=== PATIENT | female | born 1945 | race African-American/Black ===

== ENCOUNTER 2019-08-02 05:11 | Observation (INO) | payer MEDICARE ==
[~2019-08-02] VITALS: Ht 170.2 cm; Wt 69.1 kg
--- NOTE | ~2019-08-02 | HEMODYNAMI ---
PATIENT:CAMELIA RAUSCH MEDICAL RECORD: [id number] : 41 LOCATION:[address]# [id number] ADMISSION DATE: 08/02/19 Generatedon:08/02/201913:12 Patient name: CAMELIA RAUSCH Patient #: [id number] SSN: [id number] : 1945 Date of study: 08/02/2019 Page: Of Hemodynamic Procedure Report Patient Data Patient Demographics Procedure consent was obtained First Name: CAMELIA Gender: Female Last Name: MIRACLE : 1945 Patient #: [id number] Age: 74 year(s) Race: Black SSN: [id number] Additional ID: [id number] Contact details Address: [address] [place] [address] State: [facility] Zip code: [address] Past Medical History Allergies Allergen Reaction Date Comments Reported Other allergy 08/02/2019 REBEKA KEY Admission Admission Data Admission Date: 08/02/2019 Admission Time: 5:42 Arrival Date: 08/02/2019 Arrival Time: 0:00 Admit Source: Other Insurance Payor: Medicare, Room #: D.2122 Medicaid HIC #: [id number] Height (in.): 68 BSA: 1.82 (m2) Height (cm.): 172.72 BMI: 23.11 (kg/m2) Weight (lbs.): 152 Weight (kg.): 68.95 Lab Results Lab Result Date: 08/02/2019 Lab Result Time: 0:00 Biochemistry Name Units Result Min Max BUN mg/dl 8 --(*---)-- 7 18 Creatinine mg/dl 1.2 --(---*)-- 0.6 1.3 eGFR ml/min 56 *-(----)-- 90 120 AM Troponin l ng/ml 0.6777 --(----)-* 0 0.06 CBC Name Units Result Min Max Hemoglobin g/dl 12.2 *-(----)-- 13.5 17.5 Procedure Procedure Types Cath Procedure Diagnostic Procedure LHC LHC w/Coronaries w/Grafts Procedure Description Procedure Date Procedure Date: 08/02/2019 Procedure Start Time: 12:57 Procedure End Time: 13:09 Procedure Staff Name Function Umang Oliver MD Performing Physician Abbi Gamble RT Monitor Belle Garza RT Scrub Antonella Caceres RT Scrub Niurka Mckeon RN Nurse Procedure Data Cath Procedure Fluoroscopy Diagnostic fluoroscopy Total fluoroscopy Time: 2.6 time: 2.6 min min Diagnostic fluoroscopy Total fluoroscopy dose: 495 dose: 495 mGy mGy Contrast Material Contrast Material Type Amount (ml) Isovue 370 103 Entry Location Entry Primary Successful Side Size Upsize Upsize Entry Closure Succes sful Closure Location (Fr) 1 (Fr) 2 (Fr) Remarks Device Remarks Femoral Right 5 Fr Exoseal artery Diagnostic catheters Device Type Used For End Catheter Placement MULTIPACK Pigtail 5 Fr LV Angiography catheter MULTIPACK JL 4.0 5Fr Left Coronary catheter Angiography MULTIPACK 3DRC 5Fr Right Coronary catheter Angiography Procedure Complications No complications Procedure Medications Medication Administration Route Dosage 0.9% NaCl I.V. 100 ml/hr Oxygen etCO2 Nasal cannula 2 l/min Lidocaine 2% added to field 20 Heparin Flush Bag added to field 2 bags (1000units/500ml NS) Versed I.V. 2 mg Fentanyl I.V. 50 mcg Hemodynamics Rest BSA: 1.82 (m2) HGB: 12.2 (g/dl) O2 Consumption: Estimated: 162.86 (ml/min) O2 Co nsumption indexed: Estimated:89.48 (ml/min/m) Heart Rate: 67 (bpm) Snapshots Pre Cath Intra NCS Post Cath Vital Signs Time Heart Resp SPO2 etCO2 NIBP (mmHg) Rhythm Pain Sedation Rate (ipm) (%) (mmHg) Status Level (bpm) 12:55:48 65 17 98 23.9 191/89(152) NSR 0 (11) 10(A) , No pain 13:00:10 71 16 100 30.6 178/89(130) NSR 0 (11) 10(A) , No pain 13:04:35 72 13 97 29.1 179/83(133) NSR 0 (11) 10(A) , No pain 13:08:59 71 12 97 28.3 166/84(129) NSR 0 (11) 10(A) , No pain Medications Time Medication Route Dose Verified Delivered Reason Notes Eff ectiveness by by 12:54:02 0.9% NaCl I.V. 100 Umang Niurka used for ml/hr Benito Mckeon dog track kennel manager 12:54:08 Oxygen etCO2 2 Umang Niurka used for Nasal l/min Benito Mckeon procedure cannula RN 12:54:14 Lidocaine 2% added 20ml Umang Umang for local to vial Benito Oliver MD anesthetic field 12:54:18 Heparin Flush added 2 Umang Umang used for Bag to bags Benito Oliver MD procedure (1000units/500ml field NS) 12:56:50 Versed I.V. 2 mg Umang Niurka for Benito Mckeon sedation RN 12:56:59 Fentanyl I.V. 50 Umang Niurka for mcg Benito Mckeon sedation financial services consultant Log Time Note 12:19:27 Informed consent obtained and on chart 12:21:47 Patient Height : 68 inches 12:21:53 Patient Weight : 152 lbs 12:22:42 Arrival Date: 08/02/2019 12:00:00 AM 12:23:18 Insurance Payor : Medicare, Medicaid 12:23:20 Admit Source: Other 12:24:23 Lab Result : Creatinine 1.2 mg/dl 12:24:23 Lab Result : BUN 8 mg/dl 12:24:23 Lab Result : eGFR AM 56 ml/min 12:24:23 Lab Result : Hemoglobin 12.2 g/dl 12:24:23 Lab Result : Troponin l 0.6777 ng/ml 12:32:26 Procedure Status Urgent Heart Cath (IP). 12:32:28 Time tracking: Regular hours (M-F 7:00 - 5:00) 12:32:35 Plan of Care:Hemodynamics will remain stable., Cardiac rhythm will remain stable., Comfort level will be maintained., Respiratory function will remain adequate., Patient/ family verbilizes understanding of procedure., Procedure tolerated without complication., Recovers from procedure without complications.. 12:32:40 H&P Date Dictated: 08/02/2019 New H&P dictated by physician.. 12:33:00 Patient allergic to Other allergyCEFTIN, CIPRO 12:38:50 Belle Greg RT(R) (CV) sent for patient. Start room use. 12:38:56 Risk of Mortality: .3 12:38:59 Risk of blood transfusion: 1.2 12:39:02 Risk of ALEXIS: 2.3 12:47:03 Patient received from Med II to CCL 2 Alert and oriented. Tansferred to table in Supine position. 12:47:04 Warm blankets applied, and shila hugger turned on for patient comfort. 12:47:05 Correct patient and procedure confirmed by team. 12:47:05 ECG and BP/O2 sat monitors applied to patient. 12:47:07 Vital chart was started 12:54:02 0.9% NaCl 100 ml/hr I.V. was administered by Niurka Mckeon RN; used for procedure; Verbal order read back and verified. 12:54:07 Baseline sample Acquired. 12:54:08 Oxygen 2 l/min etCO2 Nasal cannula was administered by Niurka Mckeon RN; used for procedure; Verbal order read back and verified. 12:54:11 Rhythm: sinus rhythm 12:54:12 Full Disclosure recording started 12:54:13 Pre-procedure instructions explained to patient. 12:54:13 Pre-op teaching completed and patient verbalized understanding. 12:54:14 Lidocaine 2% 20ml vial added to field was administered by Umang Oliver MD; for local anesthetic; Verbal order read back and verified. 12:54:15 Family unavailable. 12:54:18 Heparin Flush Bag (1000units/500ml NS) 2 bags added to field was administered by Umang Oliver MD; used for procedure; Verbal order read back and verified. 12:54:18 Patient NPO since Breakfast. 12:54:20 Is the patient allergic to Iodine/contrast media? No. 12:54:38 Pre procedure: right dorsailis pedis pulse 1+ Palpable, but thready & weak; easily obliterated 12:54:42 Patient pain scale 0/10 ?. 12:54:53 IV patent on arrival in left wrist with 0.9% NaCl at KVO. 12:55:04 Lab results completed and on chart. 12:55:08 Right groin area was prepped with chlora-prep and draped in sterile fashion 12:55:09 Alarms reviewed by R. N. 12:55:10 Sharps counted by scrub and verified by R.N. 12:55:11 Physician arrived 12:55:35 Is patient on blood thinner?Yes 12:55:38 ACC The patient was administered the following blood thiners within the last 24 hours: ACCPlavix 12:55:41 Patient diabetic? No. 12:55:42 If diabetic: On Metformin? No 12:55:43 ----Pre-sedation anethsthesia assessment.---- 12:55:46 Previous problem with sedation/anesthesia? No ? 12:55:48 Snore? No 12:55:49 Sleep apnea? No 12:55:50 Deviated septum? No 12:55:52 Opens mouth fully? Yes 12:55:53 Sticks out tongue? Yes 12:55:55 Airway obstruction? No ? 12:55:59 Dentures? Yes IN TIGHT 12:56:04 --------ALL STOP TIME OUT------ 12:56:05 Final Timeout: patient, procedure, and site verified with staff and physician. All members of the team are in agreement. 12:56:06 Left groin site verified by team. 12:56:10 Fire Safety Assessment: A--An alcohol-based skin anteseptic being used preoperatively., C--Open oxygen or nitrous oxide is being used., D--An ESU, laser, or fiber-optic light is being used. 12:56:13 Physical assessment completed. ASA score P 2 - A patient with mild systemic disease as per Umang Oliver MD. 12:56:50 Versed 2 mg I.V. was administered by Niurka Mckeon RN; for sedation; Verbal order read back and verified. 12:56:59 Fentanyl 50 mcg I.V. was administered by Niurka Mckeon RN; for sedation; Verbal order read back and verified. 12:57:16 3a) 45-59 Moderately reduced kidney function. 12:57:21 Maximum allowable contrast dose (3.7 X eGFR X 0.75)155.4 ml. 12:57:27 Sedation plan: IV Moderate Sedation Medication:Versed, Fentanyl 12:57:32 Use device set Femoral Dx 12:57:33 ACIST Syringe (91438) opened to sterile field. 12:57:34 Bag Decanter (2002S) opened to sterile field. 12:57:34 Medline Cath Pack ([id number]) opened to sterile field. 12:57:36 ACIST Hand Control (54337) opened to sterile field. 12:57:36 ACIST Manifold (59253) opened to sterile field. 12:57:36 DIAGNOSTIC Multipack 5Fr catheter set (TZ2174) opened to sterile field. 12:57:37 Tegaderm 4 x 4 (1626W) opened to sterile field. 12:57:47 SHEATH 5FR Sunnyside (AKD201) opened to sterile field. 12:57:48 EMERALD Guide Wire (657-053) opened to sterile field. 12:57:53 Procedure started. 12:57:57 Local anesthetic to right femoral artery with Lidocaine 2% by Umang Oliver MD.INITIAL ACCESS ONLY 12:58:05 A 5 Fr sheath was inserted into the Right Femoral artery 12:59:32 A MULTIPACK Pigtail 5 Fr catheter was advanced over the wire and used for LV Angiography. 12:59:38 LV angiography performed. 13:00:10 EF : 40 % 13:00:12 LV gram done using GUNTER 13:00:15 Catheter exchanged over wire. 13:00:59 A MULTIPACK JL 4.0 5Fr catheter was advanced over the wire and used for Left Coronary Angiography. 13:01:04 LCA angiography performed. 13:01:15 Catheter removed. 13:01:22 A MULTIPACK 3DRC 5Fr catheter was advanced over the wire and used for Right Coronary Angiography. 13:01:50 DONOVAN to LAD angiography performed. 13:02:50 RCA angiography performed. 13:03:21 Catheter removed. 13:03:26 GUIDE 5FR AR2.0 catheter (NP4PI10) opened to sterile field. 13:04:33 SVG to LMCA angiography performed. 13:04:37 SVG to OM angiography performed. 13:05:06 SKIP GRAFT TO OM1 AND OM2 13:05:13 SVG to RCA angiography performed. 13:05:20 Catheter removed. 13:05:50 Procedure type changed to Cath procedure, Diagnostic procedure, LHC, LHC w/Coronaries w/Grafts 13:06:08 EXOSEAL 5Fr (EX500) opened to sterile field. 13:06:39 Sheath removed intact; hemostasis achieved with Exoseal to the Right Femoral artery. 13:06:41 Procedure ended.(Physican Out) 13:07:55 Fluoroscopy time 02.60 minutes. 13:08:02 Fluoroscopy dose: 495 mGy 13:08:02 Flurop Dose total: 495 13:08:10 Dose Area Product 86959 mGy/cm. 13:08:17 Contrast amount:Isovue 370 103ml. 13:08:20 Sharps counted by scrub and verified by R.N. 13:08:27 Insertion/operative site no bleeding no hematoma. 13:08:30 Post-op/insertion site Right Femoral artery dressed using a 4 x 4 and Tegaderm. 13:08:33 Post right femoral artery:stable 13:08:35 Post Procedure Pulses reassessed and unchanged 13:08:37 Post procedure: right dorsailis pedis pulse 2+ Normal; easily identifiable; not easily obliterated. 13:08:41 Post-procedure physical assessment completed. ASA score P 2 - A patient with mild systemic disease as per Umang Oliver MD. 13:08:44 Post procedure rhythm: unchanged. 13:08:46 Post procedure instruction explained to patient.Patient verbalizes understanding. 13:08:49 Procedure and supply charges have been captured, reviewed, submitted and are correct. 13:09:09 Procedure Complication : No complications 13:09:13 Vital chart was stopped 13:09:31 Operative report dictated upon procedure completion. 13:09:34 See physician's report for complete and final results. 13:09:45 Report given to PCU. 13:09:49 Patient transfered to PCU with Bed. 13:09:51 Procedure ended. 13:09:51 Full Disclosure recording stopped Device Usage Item Name Manufacture Quantity Catalog Hospital Part Current Minimal L ot# / Number Charge Number Stock Stock Serial# Code ACIST Acist 1 57672 737744 812774 332554 20 Syringe Medical (97274) Systems Inc Bag Microtek 1 579917 65785 688875 5 Decanter Medical Inc. () Medline Medline 1 [id number] 620954 37429 710255 5 Cath Pack ([id number]) ACIST Hand Acist 1 75670 294847 577621 958800 5 Control Medical (21305) Systems Inc ACIST Acist 1 76069 535010 692630 085044 5 Manifold Medical (03600) Systems Inc DIAGNOSTIC Cardinal 1 MP0437 852648 60022 191432 30 Multipack Health 5Fr catheter set (QP2734) Tegaderm 4 3M 1 1626W 960975 942829 893566 5 x 4 (1626W) SHEATH 5FR Terumo 1 GOD084 943788 526415 164769 5 Sunnyside (IUZ465) EMERALD Cardinal 1 502-455 251785 214859 564579 5 Guide Wire Health (502455) MULTIPACK Cardinal 1 559685 5 Pigtail 5 Health Fr catheter MULTIPACK Cardinal 1 339735 5 JL 4.0 5Fr Health catheter MULTIPACK Cardinal 1 976920 5 3DRC 5Fr Health catheter GUIDE 5FR Medtronic 1 [id number] 861385 138714 533083 1 AR2.0 catheter (TC1GF36) EXOSEAL 5Fr Cardinal 1 EX500 456595 087794 791298 10 (EX500) Health Signature Audit [place] Stage Time Signature Unsigned Intra-Procedure 08/02/2019 Abbi Gamble 1:10:35 PM RT(R); Niurka Mckeon RN; Umang Oliver MD Signatures Performing Physician : Signature : Umang Oliver MD Date : Time : Monitor : Abbi Gamble RT Signature : Date : Time : Nurse : Niurka Mckeon RN Signature : Date : Time : [facility] [address], [place] [address]
[2019-08-02 05:46] VITALS: BP 151/76
[2019-08-02] MEDS ORDERED: TYLENOL W/CODEI1 TAB PO (06:02)
[2019-08-02] MEDS ORDERED: ALBUTEROL SYRUP (06:03)
[2019-08-02] MEDS ORDERED: BAYER CHEWABLE81 MG PO (06:04)
[2019-08-02] MEDS ORDERED: NORVASC2.5 MG PO (06:04)
[2019-08-02] MEDS ORDERED: COREG25 MG PO (06:04)
[2019-08-02] MEDS ORDERED: COZAAR100 MG PO (06:05)
[2019-08-02] MEDS ORDERED: FAMVIR500 MG PO (06:05)
[2019-08-02] MEDS ORDERED: ZYRTEC10 MG PO (06:05)
[2019-08-02] MEDS ORDERED: LASIX40 MG PO (06:05)
[2019-08-02] MEDS ORDERED: KLOR-CON M2020 MEQ PO (06:06)
[2019-08-02] MEDS ORDERED: RELAFEN500 MG PO (06:06)
[2019-08-02] MEDS ORDERED: MECLIZINE HCL25 MG PO (06:06)
[2019-08-02] MEDS ORDERED: CRESTOR10 MG PO (06:07)
[2019-08-02] MEDS ORDERED: PROTONIX40 MG PO (06:07)
[2019-08-02] MEDS ORDERED: TRIAMTERENE-HC1 EAC6 PO (06:07)
[2019-08-02 06:22] VITALS: BP 156/71
--- NOTE | 2019-08-02 06:42 | NUR ---
PT ARRIVED VIA W/C FROM ER. NO DISTRESS NOTED.
[2019-08-02 06:48] LABS: CKMB 1.2 U/L (0.0-3.6); CREATINE KINASE 30 UL (21-215); POTASSIUM - SERUM 3.8 mmol/L (3.5-5.1); PRO BNP 309 pg/mL (0-450)
[2019-08-02 06:58] LABS: TROPONIN-I 0.677 ng/mL (0.000-0.060)
[2019-08-02 07:22] VITALS: BMI 23.8
[2019-08-02 09:07] VITALS: Ht 170.2 cm; Wt 69.1 kg
--- NOTE | 2019-08-02 09:15 | NUR ---
AM MEDS GIVEN AT THIS TIME. PT CAN HAVE BREAKFAST AND THEN NPO FOR HEART CATH TODAY. PT DENIES ANY NEEDS AT THIS TIME. CALL LIGHT IN REACH, NAD NOTED, WILL CONTINUE TO MONITOR.
[2019-08-02 09:37] LABS: BASOPHILS 0.6 % (0-2); EOSINOPHILS 4.3 % (0-7); HEMATOCRIT 38.3 % (36.0-48.0); HEMOGLOBIN 12.2 g/dL (12-16); IMMATURE GRANULOCYTES 0.2 % (0-5); MCH 32.1 pg (26.0-34.0); MCHC 31.9 g/dL (31.0-37.0); MCV 100.8 fL (80.0-100.0); MEAN PLATELET VOLUME 9.7 fL (7.4-10.4); MONOCYTES 7.9 % (2-11); PLATELET COUNT 302 10x3/uL (130-400); RDW 14.9 % (11.5-14.5); WBC 6.3 10x3/uL (4.8-10.8)
[2019-08-02 09:44] LABS: ANION GAP 8.2 mmol/L (8-16); CALCIUM 9.6 mg/dL (8.5-10.1); CARBON DIOXIDE 29.5 mmol/L (21.0-32.0); CREATININE - SERUM 1.2 mg/dL (0.6-1.3); POTASSIUM - SERUM 3.7 mmol/L (3.5-5.1)
[2019-08-02 11:13] VITALS: BP 133/59
--- NOTE | 2019-08-02 12:31 | NUR ---
PRE-OP MEDS GIVEN AT THIS TIME.
--- NOTE | 2019-08-02 12:41 | NUR ---
PT TO MUSIC COORDINATOR AT THIS TIME.
--- NOTE | 2019-08-02 13:46 | NUR ---
PT RESTING COMFORTABLY IN BED. RT GROIN DRESSING CDI NO S/S OF HEMATOMA. WILL CONTINUE TO MONITOR.
[2019-08-02 14:57] VITALS: BP 158/60
[2019-08-02 16:38] LABS: APTT 31.2 SECONDS (22.8-39.4); D-DIMER-QUANTITATIVE 0.84 ug/mLFEU (0.20-0.54)
[2019-08-02 16:44] LABS: INR 1.03 (0.85-1.17)
[2019-08-02 17:33] VITALS: BP 171/78
--- NOTE | 2019-08-02 19:53 | NUR ---
RECEIVED REPORT. PATIENT IS ALERT AND ORIENTED, RESTING COMFORTABLY IN BED. RESPIRATIONS ARE EVEN AND UNLABORED. NO S/S OF DISTRESS. NO C/O PAIN. CALL LIGHT WITHIN REACH. WILL CPOC.
[2019-08-02 20:33] VITALS: BP 157/61
[2019-08-03 00:49] VITALS: BP 164/62
[2019-08-03 05:38] VITALS: BP 105/64
[2019-08-03 05:51] LABS: BASOPHILS 0.9 % (0-2); EOSINOPHILS 4.7 % (0-7); HEMOGLOBIN 12.1 g/dL (12-16); IMMATURE GRANULOCYTES 0.2 % (0-5); LYMPHOCYTES 32.2 % (15-50); MCHC 31.8 g/dL (31.0-37.0); MCV 100.5 fL (80.0-100.0); MEAN PLATELET VOLUME 9.2 fL (7.4-10.4); MONOCYTES 8.6 % (2-11); NEUTROPHILS 53.4 % (40-80); PLATELET COUNT 273 10x3/uL (130-400); RBC 3.78 10x6/uL (4.00-5.40); RDW 14.7 % (11.5-14.5); WBC 6.6 10x3/uL (4.8-10.8)
[2019-08-03 06:02] LABS: CALCIUM 9.6 mg/dL (8.5-10.1); CARBON DIOXIDE 26.9 mmol/L (21.0-32.0); CREATININE - SERUM 1.1 mg/dL (0.6-1.3); MAGNESIUM - SERUM 1.9 mg/dL (1.8-2.4); POTASSIUM - SERUM 3.9 mmol/L (3.5-5.1)
--- NOTE | 2019-08-03 08:49 | NUR ---
AM MEDS GIVEN AT THIS TIME. PT A/O X4, RESP EVEN AND NONLABORED ON RA. PT LT AC IV SL. PT DENIES ANY NEEDS AT THIS TIME. CALL LIGHT IN REACH, NAD NOTED, WILL CONTINUE TO MONITOR.
[2019-08-03 09:04] VITALS: BP 169/75
--- NOTE | 2019-08-03 11:54 | NUR ---
PT TO CT AT THIS TIME.
[2019-08-03 12:25] VITALS: BP 154/67
[2019-08-03] MEDS ORDERED: PRAVACHOL20 MG PO (14:34)
--- NOTE | 2019-08-03 16:00 | NUR ---
PATIENT TO REFUSE FLU SHOT UPON DISCHARGE. STATES THAT SHE HAS A FOLLOW UP WITH DR TALAVERA AND WILL GET ONE THERE.
--- NOTE | 2019-08-03 17:38 | NUR ---
PROVIDED VERBAL AND WRITTEN DISCHARGE TEACHING TO PT WHO VERBALIZED UNDERSTANDING REGARDING TEACHING. D/C LT AC IV WITH CATHETER TIP INTACT. PT WAITING ON RIDE.
--- NOTE | 2019-08-03 19:45 | NUR ---
PT DC PAPER READY AND SUGNED. IV AND TELEMETRY REMOVED BY OUTGOING NURSE. ALL PT BELONGINGS WITH PT AT THIS TIME. PT AWAITING VAN FROM [facility] [place] AT THIS TIME.
--- NOTE | 2019-08-05 08:32 | MORECARE ---
CASE MANAGEMENT DISCHARGE SUMMARY PATIENT: CAMELIA RAUSCH UNIT: [id number] ADM DATE: 08/02/19 AGE: 74 : [birth year] SEX: F ROOM/BED: D.2122 AUTHOR: SHARON PEREZ PHYSICIAN: REFERRING PHYSICIAN: MAYUR AMAYA MD DATE OF SERVICE: 08/05/19 Discharge Plan Patient Name: CAMELIA RAUSCH Facility: [facility]:[place] : 1945 Planned Disposition: Home Anticipated Discharge Date: 08/04/19 Discharge Date: 08/04/2019 Expected LOS: 2 Initial Reviewer: [email or web address] Initial Review Date: 08/05/2019 Generated: 08/05/19 9:32 am Coverage Notice Reviewer: [email or web address] Shelby Collado Notice Issued Date-Time: 08/02/2019 15:48 Notice Type: Medicare Outpatient Observation Notice Notice Delivered To: Patient Relationship to Patient: Self Firer Retort Name: Delivery Method: HAND - Hand Delivered Veronica Days: Prior Verbal Notification: Recipient Understood Notice: Yes Recipient Signature: Yes Med Rec Note Co-signed by Attending: Coverage Notice Comment: Patient Name: CAMELIA RAUSCH Page [phone] at 0832 All edits/amendments must be made on the electronic document DICTATION DATE: 08/05/19 0832 TECHNICIAN TELECOMMUNICATION SYSTEMS: SHONDA 08/05/19 0832 RPT#: [id number] DC DATE:08/04/19 STATUS: DIS IN [id number] [place] [address] END OF REPORT
--- NOTE | 2019-08-09 17:02 | EC ---
PATIENT:CAMELIA RAUSCH DATE OF SERVICE: 08/02/19 SEX: F MEDICAL RECORD: [id number] DATE OF : [birth year] LOCATION:D. D.212 AGE OF PATIENT: 74 ADMISSION DATE: 08/02/19 REFERRING PHYSICIAN: INTERPRETING PHYSICIAN: BRANDAN OLIVER MD ECHOCARDIOGRAM REPORT ECHO CHARGES 4 ECHO COMPLETE Date: 08/02/19 CLINICAL DIAGNOSIS: MN ECHOCARDIOGRAPHIC MEASUREMENTS (adult normal given) AC root (d.<3.7cm) 3.2 cm LV Septum d (<1.2 cm> 1.3 cm Valve Excursion 1.7 cm LV Septum (systole) 1.6 cm Left Atria (s.<4.0cm> 3.2 cm LVPW d(<1.2cm) 1.1 cm RV (d.<2.3cm) 2.9 cm LVPW (sytole) 1.3 cm LV diastole(<5.6CM) 4.6 cm MV E-F(>70mm/sec) cm LV systole 3.5 cm LVOT Diameter 1.8 cm MV exc.(>10mm) cm Est.ejection fraction (50-75%) % DOPPLER: LVIT cm/sec A 72 cm/sec E 63 cm/sec LA cm/sec RVSP 37.3 mmHg LVOT 110 cm/sec AOP1/2T m/s Asc. Ao 159 cm/sec RVOT 34 cm/sec RA cm/sec PA 65 cm/sec AV Gradient Peak 10.2 mmHg AV Mean 5.3 mmHg AV Area cm MV Gradient Peak 8.3 mmHg MV Mean 2.9 mmHg MV Area cm COMMENTS: Motor Room Controller: Christo DOEROSCOE SUSAN Dietetics Professor: Radha Oliver TAPE# PACS Pericardial Effusion N DATE OF SERVICE: 08/02/2019 ECHOCARDIOGRAM FINDINGS: 1. Left ventricular chamber size is within normal limits. Left ventricular systolic function is normal. Overall ejection fraction estimated at 55% to 60%. 2. Left atrium is within normal limits. Right atrium and right ventricular chamber sizes are mildly dilated. 3. Valvular structure have normal structure and motion. ECHOCARDIOGRAM REPORT [id number] CAMELIA RAUSCH 4. Doppler interrogation reveals mild aortic insufficiency, mild mitral regurgitation, mild tricuspid regurgitation. No other valvular insufficiency or stenosis. Pulmonary systolic pressure is estimated at 37 mmHg. 5. No evidence of pericardial effusion or left ventricular thrombus. TRANSINT:[id number] Voice Confirmation ID: [id number] DOCUMENT ID: [id number] BRANDAN OLIVER MD at 1702 CC: [id number] DICTATION DATE: 08/02/191651 LIFESTYLE BLOCK FARMER: 08/02/19 1754 DIS IN 08/04/19 [facility] [address] [place] [id number]
--- NOTE | 2019-08-09 17:02 | CN ---
PATIENT NAME:CAMELIA RAUSCH MEDICAL RECORD: [id number] : 41 LOCATION:D. D.2122 ADMIT DATE: 08/02/19 ACCOUNT: [id number] CONSULTING PHYSICIAN: BRANDAN PIMENTEL MD REFERRING PHYSICIAN: MAYUR AMAYA MD DATE OF CONSULTATION: 08/02/2019 CARDIOLOGY CONSULT DIAGNOSES: 1. Non-Q-wave myocardial infarction. 2. Coronary artery disease. 3. Status post coronary artery bypass graft surgery. 4. Status post previous multivessel percutaneous transluminal coronary angioplasty stent. 5. Hypertension. 6. Hyperlipidemia. HISTORY OF PRESENT ILLNESS: Mrs. Rausch presents with chest pain. She has had chest pain on and off for a month. It; however, worsened dramatically in the past 24 hours. She is a class IV angina. She has ruled in for a non-Q-wave myocardial infarction. Bypass surgery, 4-vessel approximately 2 years ago stenting, multivessel prior to that. PHYSICAL EXAMINATION: CONSTITUTIONAL/GENERAL APPEARANCE: Well nourished, well developed, appears stated age. EYES: Lids and conjunctivae noninjected. No discharge. No pallor. ENT: Lips within normal limit. No cyanosis. No pallor. NECK: Carotid arteries, bilateral normal upstroke. No bruits. No thrills. No jugular venous pressure or distention. CERVICAL LYMPH NODES: Nontender. Nonenlarged. THYROID: Not enlarged. No nodules. CARDIOVASCULAR: Precordial exam, nondisplaced. No heaves or pericardial thrills. Rate and rhythm, regular. Heart sounds, normal S1, normal S2. No S3, no gallop, no rub. Systolic murmur, not heard. Diastolic murmur, not heard. RESPIRATORY: Respiratory effort, unlabored. Normal curvature. No thoracic deformity. No chest wall tenderness. Percussion, resonant. Auscultation, clear. No wheezes, no rales, no rhonchi. ABDOMEN: Soft, nondistended, nontender. No abdominal pain, no vomiting and normal appetite. MUSCULOSKELETAL: No joint tenderness, normal gait, normal tone. SKIN: Warm and dry. OVERALL IMPRESSION: Chest pain, non-Q-wave myocardial infarction, continued episodes of chest pain. No doubt she has hemodynamically significant coronary artery disease and/or graft failure. We will add long-acting nitrate. We will not add a beta-sierra as her heart rate is in the 60s. We will add aspirin and Plavix to her medical regimen, proceed with coronary angiography later today. TRANSINT:[id number] Voice Confirmation ID: [id number] DOCUMENT ID: [id number] CONSULT REPORT [id number] CAMELIA RAUSCH JEFFREY MD at 1702 CC: [id number] DICTATION DATE: 08/02/19910 MANAGER FINANCIAL SERVICES: 08/02/19 09 DIS IN 08/04/19 [facility] [address] [place] [address]
--- NOTE | 2019-08-09 17:02 | OP ---
PATIENT NAME: CAMELIA RAUSCH MEDICAL RECORD: [id number] :41 LOCATION:D.M2 D.2122 ADMISSION DATE:08/02/19 SURGEON: BRANDAN PIMENTEL MD DATE OF OPERATION: 08/02/2019 PROCEDURES: 1. Left heart catheterization. 2. Selective coronary angiography. 3. Vein graft angiography. 4. DONOVAN angiography. INDICATION: Angina, coronary artery disease, non-Q-wave myocardial infarction. DESCRIPTION OF PROCEDURE IN DETAIL: After informed consent was obtained and after a detailed description of the risks, benefits as well as alternative therapies, the patient elected to proceed with angiogram and angioplasty. The right femoral area was prepped and draped in normal sterile fashion. Right femoral artery was cannulated via modified Seldinger technique with placement of 6-[place] sheath. All catheters exchanged through this sheath. FINDINGS: Left performed in standard 30-degree GUNTER view, reveals ejection fraction in the 50% range. SELECTIVE CORONARY ANGIOGRAPHY: 1. Left main showed no significant angiographic disease. 2. Left anterior descending is totally occluded. 3. DONOVAN to the LAD is widely patent. Distal LAD is widely patent. 4. Left circumflex has 80% stenosis in the proximal vessel. First and second obtuse marginals were totally occluded. There is a small third obtuse marginal with this feeds. 5. Vein graft to the first marginal is widely patent. 6. Vein graft to second marginal is widely patent. 7. Right coronary is totally occluded. 8. Vein graft to the RCA is widely patent. OVERALL IMPRESSION: Wide patency of all her bypass grafts. There is a stenosis of the citizen [place] circumflex. This feeds only a terminal marginal most likely been this way since bypass surgery. All the bypasses were open. At this time, optimize medical management of the coronary artery disease. She does continue to have symptomatology. Consideration could be given to PTCA stent of the circumflex leading into the terminal obtuse marginal. TRANSINT:[id number] Voice Confirmation ID: [id number] DOCUMENT ID: [id number] BRANDAN PIMENTEL MD at 1702 CC: [id number] DICTATION DATE: 08/02/19 1649 DIGITAL CONTENT COORDINATOR: 08/02/19 1732 DIS IN 08/04/19 [place] [address]
== END 2019-08-04 04:47 | disposition home or self-care (01) ==
LOC: D.ER 05:11 → D.M2 05:42 → OBSVTIME 05:42 → D.M2 08-04 04:47
PROVIDERS: Emergency Medicine; Family Medicine Adult Medicine; Internal Medicine Interventional Cardiology; ADMIT Internal Medicine Nephrology; ATTEND Internal Medicine Nephrology
DX: I21.4 Non-ST elevation (NSTEMI) myocardial infarction (principal); I10 Essential (primary) hypertension; E78.5 Hyperlipidemia, unspecified; I25.110 Atherosclerotic heart disease of native coronary artery with unstable angina pectoris; K21.9 Gastro-esophageal reflux disease without esophagitis; J42 Unspecified chronic bronchitis; J96.01 Acute respiratory failure with hypoxia

== ENCOUNTER 2019-08-11 04:01 | Inpatient (IN) | payer MEDICARE ==
[~2019-08-11] VITALS: Ht 170.2 cm; Wt 64.1 kg
--- NOTE | ~2019-08-11 | HEMODYNAMI ---
PATIENT:CAMELIA RAUSCH MEDICAL RECORD: [id number] : 41 [facility] [id number] ADMISSION DATE: 08/11/19 Generatedon:08/11/201913:25 Patient name: CAMELIA RAUSCH Patient #: [id number] SSN: [id number] : 1945 Date of study: 08/11/2019 Page: Of Hemodynamic Procedure Report Patient Data Patient Demographics Procedure consent was obtained First Name: CAMELIA Gender: Female Last Name: MIRACLE : 1945 Patient #: [id number] Age: 74 year(s) Race: Black SSN: [id number] Additional ID: [id number] Contact details Address: [address] [place] [address] State: [facility] Zip code: [address] Past Medical History Allergies Allergen Reaction Date Comments Reported Other allergy 08/02/2019 CEFTIN, CIPRO Other allergy 08/11/2019 CEFTIN, CIPRO Admission Admission Data Admission Date: 08/11/2019 Admission Time: 4:44 Room #: D.2124 Height (in.): 66.93 BSA: 1.8 (m2) Height (cm.): 170 BMI: 23.88 (kg/m2) Weight (lbs.): 152.12 Weight (kg.): 69 Current Diagnosis Diagnosis Description NSTEMI Lab Results Lab Result Date: 08/11/2019 Lab Result Time: 0:00 Biochemistry Name Units Result Min Max BUN mg/dl 10 --(-*--)-- 7 18 Creatinine mg/dl 1.2 --(---*)-- 0.6 1.3 eGFR ml/min 46 *-(----)-- 90 120 NONAFRICAN CBC Name Units Result Min Max Hematocrit % 39.4 -*(----)-- 42 54 Hemoglobin g/dl 12.6 -*(----)-- 13.5 17.5 Procedure Procedure Types Cath Procedure Diagnostic Procedure LHC LHC w/Coronaries w/Grafts Sedation Charges Moderate Sedation up to 15 minutes PCI Procedure Coronary Stent Coronary Stent Initial Procedure Description Procedure Date Procedure Date: 08/11/2019 Procedure Start Time: 12:55 Procedure End Time: 13:19 Procedure Staff Name Function Umang Oliver MD Performing Physician Liberty Sagastume RT Monitor Corie De Los Santos RT Scrub Niurka Mckeon RN Nurse Antony Hernandez RN Floriculturist Procedure Data Cath Procedure Fluoroscopy Diagnostic fluoroscopy Total fluoroscopy Time: 8.7 time: 8.7 min min Diagnostic fluoroscopy Total fluoroscopy dose: dose: 1176 mGy 1176 mGy Contrast Material Contrast Material Type Amount (ml) Isovue 300 133 Entry Location Entry Primary Successful Side Size Upsize Upsize Entry Closure Succes sful Closure Location (Fr) 1 (Fr) 2 (Fr) Remarks Device Remarks Femoral Left 5 Fr 6 Fr Exoseal artery Short Estimated blood loss: 10 ml Diagnostic catheters Device Type Used For End Catheter Placement MULTIPACK Pigtail 5 Fr Procedure catheter MULTIPACK JL 4.0 5Fr Procedure catheter MULTIPACK 3DRC 5Fr Procedure catheter DIAGNOSTIC AR2 MOD 5 Fr Procedure catheter ([id number]) Procedure Complications No complications Procedure Medications Medication Administration Route Dosage 0.9% NaCl I.V. 100 ml/hr Oxygen etCO2 Nasal cannula 2 l/min Lidocaine 2% added to field 20 Heparin Flush Bag added to field 2 bags (1000units/500ml NS) Versed I.V. 2 mg Fentanyl I.V. 25 mcg Heparin Bolus I.V. 4000 units Integrilin (Bolus I.V. 6.2 ml 2mg/ml) Integrilin (Bolus wasted 3.8 ml 2mg/ml) Plavix P.O. 600 mg Hemodynamics Rest BSA: 1.8 (m2) HGB: 12.6 (g/dl) O2 Consumption: Estimated: 163.46 (ml/min) O2 Con sumption indexed: Estimated:90.81 (ml/min/m) Heart Rate: 70 (bpm) Snapshots Pre Cath Intra NCS Post Cath Vital Signs Time Heart Resp SPO2 etCO2 NIBP (mmHg) Rhythm Pain Sedation Rate (ipm) (%) (mmHg) Status Level (bpm) 12:43:49 68 12 95 24.9 Measuring NSR 0 (11) 10(A) , No pain 12:44:14 69 12 97 30.9 188/88(143) NSR 0 (11) 10(A) , No pain 12:48:40 68 13 100 13 162/83(104) NSR 0 (11) 10(A) , No pain 12:52:58 66 11 100 13 145/77(93) NSR 0 (11) 10(A) , No pain 12:57:06 87 11 100 13.5 151/91(106) NSR 0 (11) 9(A) , No pain 13:01:18 70 12 100 12 155/81(124) NSR 0 (11) 9(A) , No pain 13:05:34 66 11 100 12 150/78(118) NSR 0 (11) 9(A) , No pain 13:09:50 73 11 100 9 133/69(86) NSR 0 (11) 9(A) , No pain 13:13:58 64 11 100 18.1 136/74(106) NSR 0 (11) 10(A) , No pain 13:18:48 71 10 99 34 161/82(110) NSR 0 (11) 10(A) , No pain Medications Time Medication Route Dose Verified Delivered Reason Notes Effectiveness by by 12:42:09 0.9% NaCl I.V. 100 Umang Niurka used for ml/hr Benito Mckeon conservation engineer 12:42:15 Oxygen etCO2 2 Umang Niurka used for Nasal l/min Benito Mckeon procedure cannula RN 12:42:19 Lidocaine 2% added 20ml Umang Heck for local to vial Benito Oliver MD anesthetic field 12:42:24 Heparin Flush added 2 Umang Umang used for Bag to bags Benito Oliver MD procedure (1000units/500ml field NS) 12:52:26 Versed I.V. 2 mg Umang Niurka for sedation Benito Mckeon RN 12:52:31 Fentanyl I.V. 25 Umang Niurka for sedation mcg Benito Mckeon RN 13:04:31 Heparin Bolus I.V. 4000 Umang Niurka for verif ied units Benito Mckeon anticoagulation with Dr. BLAYNE Oliver 13:04:44 Integrilin I.V. 6.2 Umang Niurka for (Bolus 2mg/ml) ml Benito Mckeon antiplatelet RN therapy 13:04:57 Integrilin wasted 3.8 Umang Bah for (Bolus 2mg/ml) ml Benito Mckeon antiplatelet RN therapy 13:09:01 Plavix P.O. 600 Umang Bah for mg Benito Mckeon antiplatelet RN therapy Procedure Log Time Note 12:14:38 Informed consent obtained and on chart 12:15:22 Time tracking: Regular hours (M-F 7:00 - 5:00) 12:15:26 Plan of Care:Hemodynamics will remain stable., Cardiac rhythm will remain stable., Comfort level will be maintained., Respiratory function will remain adequate., Patient/ family verbilizes understanding of procedure., Procedure tolerated without complication., Recovers from procedure without complications.. 12:15:29 Procedure Status Urgent Heart Cath (IP). 12:18:57 Antony Hernandez RN sent for patient. Start room use. 12:19:08 H&P Date Dictated: 08/11/2019 New H&P dictated by physician.. 12:19:45 Patient allergic to Other allergyCEFTIN, CIPRO 12:20:15 Lab Result : BUN 10 mg/dl 12:20:15 Lab Result : Creatinine 1.2 mg/dl 12:20:15 Lab Result : eGFR NONAFRICAN 46 ml/min 12:20:15 Lab Result : Hemoglobin 12.6 g/dl 12:20:15 Lab Result : Hematocrit 39.4 % 12:20:24 Stress Test: no; normal NSTEMI 12:22:34 Risk of Mortality: .6 12:22:47 Risk of blood transfusion: 1.5 12:22:50 Risk of ALEXIS: 6.2 12:28:05 Patient Weight : 152.12 lbs 12:28:08 Patient Height : 66.93 inches 12:28:18 Current Diagnosis : NSTEMI 12:35:58 Patient received from Med II to CCL 1 Alert and oriented. Tansferred to table in Supine position. 12:36:00 Warm blankets applied, and shila hugger turned on for patient comfort. 12:36:00 Correct patient and procedure confirmed by team. 12:36:00 ECG and BP/O2 sat monitors applied to patient. 12:42:00 Vital chart was started 12:42:09 0.9% NaCl 100 ml/hr I.V. was administered by Niurka Mike RN; used for procedure; Verbal order read back and verified. 12:42:15 Oxygen 2 l/min etCO2 Nasal cannula was administered by Niurka Mckeon RN; used for procedure; Verbal order read back and verified. 12:42:19 Lidocaine 2% 20ml vial added to field was administered by Umang Oliver MD; for local anesthetic; Verbal order read back and verified. 12:42:24 Heparin Flush Bag (1000units/500ml NS) 2 bags added to field was administered by Umang Oliver MD; used for procedure; Verbal order read back and verified. 12:44:47 Baseline sample Acquired. 12:44:51 Rhythm: sinus rhythm 12:44:52 Full Disclosure recording started 12:44:53 Pre-procedure instructions explained to patient. 12:44:53 Pre-op teaching completed and patient verbalized understanding. 12:44:58 Family in patients room. 12:44:59 Patient NPO since Midnight. 12:45:02 Is patient on blood thinner?No 12:45:03 Patient diabetic? No. 12:45:17 Previous problem with sedation/anesthesia? No ? 12:45:18 Snore? Yes 12:45:20 Sleep apnea? No 12:45:21 Deviated septum? No 12:45:34 Opens mouth fully? Yes 12:45:36 Sticks out tongue? No 12:45:41 Airway obstruction? Yes COPD 12:45:45 Dentures? Yes IN 12:45:55 Pre procedure: left dorsailis pedis pulse 1+ Palpable, but thready & weak; easily obliterated 12:46:04 IV patent on arrival in left antecubital with 0.9% NaCl at [facility]. 12:46:07 Lab results completed and on chart. 12:46:13 Left groin area was prepped with chlora-prep and draped in sterile fashion 12:46:14 Alarms reviewed by R. N. 12:46:14 Sharps counted by scrub and verified by R.N. 12:46:44 Use device set Femoral Dx 12:46:45 ACIST Syringe (05677) opened to sterile field. 12:46:46 Bag Decanter (2002) opened to sterile field. 12:46:47 ACIST Hand Control (85348) opened to sterile field. 12:46:47 ACIST Manifold (50009) opened to sterile field. 12:46:48 Tegaderm 4 x 4 (1626W) opened to sterile field. 12:46:49 Medline Cath Pack ([id number]) opened to sterile field. 12:46:50 DIAGNOSTIC Multipack 5Fr catheter set (MN3751) opened to sterile field. 12:46:50 SHEATH 5FR [place] (ODL234) opened to sterile field. 12:46:51 EMERALD Guide Wire (161-396) opened to sterile field. 12:51:48 --------ALL STOP TIME OUT------ 12:51:49 Final Timeout: patient, procedure, and site verified with staff and physician. All members of the team are in agreement. 12:51:51 Left groin site verified by team. 12:51:54 Fire Safety Assessment: A--An alcohol-based skin anteseptic being used preoperatively., C--Open oxygen or nitrous oxide is being used., D--An ESU, laser, or fiber-optic light is being used. 12:51:57 Physical assessment completed. ASA score P 2 - A patient with mild systemic disease as per Umang Oliver MD. 12:52:03 3a) 45-59 Moderately reduced kidney function. 12:52:05 Maximum allowable contrast dose (3.7 X eGFR X 0.75)128 ml. 12:52:09 Sedation plan: IV Moderate Sedation Medication:Versed, Fentanyl 12:52:26 Versed 2 mg I.V. was administered by Niurka Mckeon RN; for sedation; Verbal order read back and verified. 12:52:31 Fentanyl 25 mcg I.V. was administered by Niurka Mckeon RN; for sedation; Verbal order read back and verified. 12:55:11 Procedure started. 12:55:15 Local anesthetic to left femerol artery with Lidocaine 2% by Umang Oliver MD.INITIAL ACCESS ONLY 12:55:33 Zero performed for pressure channel P1 12:55:37 Zero performed for pressure channel P1 12:56:01 A 5 Fr sheath was inserted into the Left Femoral artery 12:56:42 A MULTIPACK Pigtail 5 Fr catheter was advanced over the wire and used for Procedure. 12:56:46 LV gram done using GUNTER 12:56:48 Injector settings: Ml/sec: 10, Volume: 20, 12:57:16 EF : 60 % 12:57:17 Catheter removed. 12:57:32 A MULTIPACK JL 4.0 5Fr catheter was advanced over the wire and used for Procedure. 12:58:44 LCA angiography performed. 12:58:46 Catheter removed. 12:58:53 A MULTIPACK 3DRC 5Fr catheter was advanced over the wire and used for Procedure. 12:59:55 DONOVAN to LAD angiography performed. 13:00:38 RCA angiography performed. 13:00:56 Catheter removed. 13:01:10 A DIAGNOSTIC AR2 MOD 5 Fr catheter ([id number]) was advanced over the wire and used for Procedure. 13:02:14 SVG to Diag angiography performed. 13:02:18 SVG to RCA angiography performed. 13:02:30 Catheter removed. 13:02:49 SHEATH 6FR [place] (IUO666) opened to sterile field. 13:02:50 INFLATOR Merit BasixCompak (KV4491) opened to sterile field. 13:03:06 GUIDE 6FR EBU 3.5 catheter ([id number]) opened to sterile field. 13:03:12 Proceeding to intervention. 13:03:19 Sheath upsized to a 6 Fr Short. 13:03:28 Pre PCI Site: [place] mCirc has 90% stenosis. 13:03:41 6 Fr EBU 3.5 guide catheter was inserted over the wire 13:03:59 Guide Catheter removed. unable to cannulate vessel. 13:04:31 Heparin Bolus 4000 units I.V. was administered by Niurka Mckeon RN; for anticoagulation; verified with Dr. Oliver Verbal order read back and verified. 13:04:38 GUIDE 6FR EBU 4.0 guide catheter ([id number]) opened to sterile field. 13:04:44 Integrilin (Bolus 2mg/ml) 6.2 ml I.V. was administered by Niurka Mckeon RN; for antiplatelet therapy; Verbal order read back and verified. 13:04:49 6 Fr EBU 4 guide catheter was inserted over the wire 13:04:57 Integrilin (Bolus 2mg/ml) 3.8 ml wasted was administered by Niurka Mckeon RN; for antiplatelet therapy; Verbal order read back and verified. 13:05:52 CHOICE PT Extra Support 182cm wire ([id number]) opened to sterile field. 13:06:19 CHOICE ES 182 wire advanced. 13:07:48 Wire advanced across lesion. 13:09:01 Plavix 600 mg P.O. was administered by Niurka Mckeon RN; for antiplatelet therapy; Verbal order read back and verified. 13:09:29 Inflate balloon Inflation number: 1 A EUPHORA 2.5 x 15 Balloon ([id number]) was prepped and advanced across the Mid CX , then inflated to 11 DELANO for 0:00 (min:sec) . 13:09:48 Balloon removed over the wire. 13:13:44 Place stent Inflation Number: 2 A SHERWIN RX 3.0 x 12 stent ([id number]) was prepped and advanced across the Mid CX . The stent was deployed at 13 DELANO for 0:00 (min:sec) . 13:14:36 Inflation number: 3 The stent balloon was then re-inflated across the Mid CX to 13 EDLANO for 0:00 (min:sec) . 13:14:45 Stent catheter was removed intact over wire. 13:15:07 Wire removed. 13:15:07 Guide catheter removed. 13:15:14 EXOSEAL 6Fr (EX600) opened to sterile field. 13:15:29 Sheath removed intact; hemostasis achieved with Exoseal to the Left Femoral artery. 13:15:33 Procedure ended.(Physican Out) 13:15:56 Fluoroscopy time 08.70 minutes. 13:16:00 Flurop Dose total: 1176 13:16:00 Fluoroscopy dose: 1176 mGy 13:16:04 Dose Area Product 33498 mGy/cm. 13:16:06 Contrast amount:Isovue 300 133ml. 13:16:09 Maximum allowable dose exceeded? Yes. 13:16:10 Sharps counted by scrub and verified by R.N. 13:17:32 Post-op/insertion site Left Femoral artery dressed using a 4 x 4 and Tegaderm. 13:17:34 Post-procedure physical assessment completed. ASA score P 2 - A patient with mild systemic disease as per Umang Oliver MD. 13:17:37 Post procedure rhythm: sinus rhythm 13:17:40 Estimated blood loss: 10 ml 13:18:02 Post procedure instruction explained to patient.Patient verbalizes understanding. 13:18:03 Patient needs reinforcement of post procedure teaching. 13:18:24 Procedure type changed to Cath procedure, Diagnostic procedure, LHC, LHC w/Coronaries w/Grafts, Sedation Charges, Moderate Sedation up to 15 minutes, PCI procedure, Coronary Stent, Coronary Stent Initial 13:18:47 Procedure and supply charges have been captured, reviewed, submitted and are correct. 13:18:49 Procedure Complication : No complications 13:19:27 Vital chart was stopped 13:19:30 [facility] Findings: MVD- PCI performed (see procedure note) 13:19:33 Operative report dictated upon procedure completion. 13:19:33 See physician's report for complete and final results. 13:19:49 Report given to PCU. 13:19:52 Patient transfered to PCU with Bed. 13:19:54 Procedure ended. 13:19:54 Full Disclosure recording stopped 13:20:03 ACC-PCI Only Patient was given prescriptions, or instructed by Umang Oliver MD to start/continue the following medications upon discharge: Plavix 13:20:05 End room use (Document Last) 13:23:40 ACT drawn and resulted at >400 seconds. (normal therapeutic range 180-240 seconds). 13:24:43 ACT drawn and resulted at ? seconds. (normal therapeutic range 180-240 seconds). Intervention Summary Intervention Notes Time ActionType Lesion and Equipment Used Action# Pressure Duration Attributes 13:09:29 Inflate Mid CX EUPHORA 2.5 x 1 11 00:00 balloon 15 Balloon ([id number]) 13:13:44 Place stent Mid CX SHERWIN RX 3.0 x 2 13 00:00 12 stent ([id number]) 13:14:36 Reinflate Mid CX SHERWIN RX 3.0 x 3 13 00:00 stent 12 stent balloon ([id number]) Device Usage Item Name Manufacture Quantity Catalog Number Hospital Part Current M inimal Lot# / Charge Number Stock Stock Serial# Code ACIST Syringe Acist 1 33437 263913 093036 255852 2 0 (38929) Medical Systems Inc Bag Decanter Microtek 1 177113 89305 164269 5 () Medical Inc. ACIST Hand Acist 1 57259 769303 028351 626225 5 Control Medical (25379) Systems Inc ACIST Manifold Acist 1 35158 435391 914295 466333 5 (78863) Medical Systems [place] Medical Tegaderm 4 x 4 3M 1 1626W 532526 442042 105990 5 (1626W) Medline Cath Medline 1 [id number] 994063 89152 256824 5 Pack ([id number]) DIAGNOSTIC Cardinal 1 AU3803 774267 52743 810723 3 0 Multipack 5Fr Health catheter set (LH8144) SHEATH 5FR Terumo 1 RLT877 262309 227019 601873 5 [place] (HYH794) EMERALD Guide Cardinal 1 502-455 864581 664061 085006 5 Wire (502-455) Health MULTIPACK Cardinal 1 533089 5 Pigtail 5 Fr Health catheter MULTIPACK JL Cardinal 1 118719 5 4.0 5Fr Health catheter MULTIPACK 3DRC Cardinal 1 068639 5 5Fr catheter Health DIAGNOSTIC AR2 Cardinal 1 [id number] 650254 623055 192755 2 0 MOD 5 Fr Health catheter (063921S) SHEATH 6FR Terumo 1 UQR401 851670 483758 293928 4 0 [place] (TZA257) INFLATOR Merit Merit 1 EV9973 149450 462850 201200 1 5 Revegy Medical (UB2521) GUIDE 6FR EBU Medtronic 1 [id number] 809275 19320 590880 3 3.5 catheter (OJ8QND85) GUIDE 6FR EBU Medtronic 1 [id number] 411118 07909 488302 1 4.0 guide catheter (XL3DCB95) CHOICE PT Pyrites 1 [id number] 193643 692063 433027 5 Extra Support Scientific 182cm wire (6814407V4) EUPHORA 2.5 x Medtronic 1 [id number] 737929 002711 528131 5 [id number] 15 Balloon ([id number]) SHERWIN RX 3.0 x Medtronic 1 [id number] 801889 0170892 680911 5 [id number] 12 stent ([id number]) EXOSEAL 6Fr Cardinal 1 EX600 419984 402375 038031 1 0 (EX600) Health Signature Audit [place] Stage Time Signature Unsigned Intra-Procedure 08/11/2019 Liberty Sagastume 1:24:13 PM RT(R) Intra-Procedure 08/11/2019 Niurka Mckeon 1:24:43 PM RN Intra-Procedure 08/11/2019 Umang Oliver 1:25:06 PM MD Signatures Performing Physician : Signature : Umang Oliver MD Date : Time : Monitor : Libertyzulma Sagastume Signature : RT Date : Time : Nurse : Niurka Mckeon RN Signature : Date : Time : [place] [address] [place] [address]
[~2019-08-11 04:01] MED LIST: ALBUTEROL SYRUP; BAYER CHEWABLE81 MG PO; COREG25 MG PO; COZAAR100 MG PO; CRESTOR10 MG PO; FAMVIR500 MG PO; KLOR-CON M2020 MEQ PO; LASIX40 MG PO; MECLIZINE HCL25 MG PO; NORVASC2.5 MG PO; PRAVACHOL20 MG PO; PROTONIX40 MG PO; RELAFEN500 MG PO; TRIAMTERENE-HC1 EAC6 PO; TYLENOL W/CODEI1 TAB PO; ZYRTEC10 MG PO
[2019-08-11 04:54] VITALS: BP 126/71
[2019-08-11 05:30] LABS: TROPONIN-I 1.074 ng/mL (0.000-0.060)
[2019-08-11 05:42] VITALS: BP 169/81; Ht 170.2 cm; Wt 64.1 kg
[2019-08-11 08:46] LABS: BASOPHILS 0.3 % (0-2); EOSINOPHILS 0.1 % (0-7); HEMATOCRIT 39.4 % (36.0-48.0); HEMOGLOBIN 12.6 g/dL (12-16); IMMATURE GRANULOCYTES 0.2 % (0-5); LYMPHOCYTES 17.9 % (15-50); MCH 31.8 pg (26.0-34.0); MCV 99.5 fL (80.0-100.0); MEAN PLATELET VOLUME 9.2 fL (7.4-10.4); MONOCYTES 4.3 % (2-11); NEUTROPHILS 77.2 % (40-80); RBC 3.96 10x6/uL (4.00-5.40); RDW 14.4 % (11.5-14.5); WBC 9.3 10x3/uL (4.8-10.8)
[2019-08-11 08:47] LABS: PLATELET COUNT 333 10x3/uL (130-400)
[2019-08-11 08:59] LABS: ANION GAP 15.4 mmol/L (8-16); CALCIUM 9.2 mg/dL (8.5-10.1); CARBON DIOXIDE 22.3 mmol/L (21.0-32.0); CHOL - HDL RATIO 3.5 ratio (2.3-4.1); CREATININE - SERUM 1.2 mg/dL (0.6-1.3); LDL-HDL RATIO 2.2 ratio (1.5-3.5); POTASSIUM - SERUM 3.7 mmol/L (3.5-5.1)
[2019-08-11 09:36] VITALS: BP 145/61
[2019-08-11 12:01] LABS: CKMB 14.8 U/L (0.0-3.6); CREATINE KINASE 124 UL (21-215)
[2019-08-11 12:13] LABS: TROPONIN-I 14.953 ng/mL (0.000-0.060)
--- NOTE | 2019-08-11 12:37 | NUR ---
PT TO DIRECTOR WRITING.
--- NOTE | 2019-08-11 13:43 | NUR ---
RECEIVED PT BACK TO ROOM 2123 VIA BED. PT STILL DROWSY BUT EASILY AROUSES TO VOICE. VITAL SIGNS STABLE, RT GROIN DRESSING CDI NO S/S OF HEMATOMA. PT DENIES ANY NEEDS AT THIS TIME, CALL LIGHT IN REACH, NAD NOTED, WILL CONTINUE TO MONITOR.
--- NOTE | 2019-08-11 15:15 | NUR ---
NO CHANGES FROM PREVIOUS ASSESSMENT. ORDRED PT A LUNCH TRAY. PT DENIES ANY NEEDS AT THIS TIME. CALL LIGHT IN REACH, NAD NOTED, WILL CONTINUE TO MONITOR.
[2019-08-11 17:38] LABS: CKMB 11.1 U/L (0.0-3.6); CREATINE KINASE 95 UL (21-215)
[2019-08-11 17:53] LABS: TROPONIN-I 10.468 ng/mL (0.000-0.060)
--- NOTE | 2019-08-11 19:30 | NUR ---
PT SITTING UP IN BED ALERT AND ORIENTED X4. NO S/S OF DISTRESS. LEFT GROIN CATH SITE SOFT WITH DRESSING C/D/I. PT DENIES ANY PAIN OR ANY FURTHER NEEDS AT THIS TIME. VITALS STABLE. BED LOW, CALL LIGHT WITHIN REACH, WILL CONTINUE TO MONITOR.
[2019-08-11 20:00] VITALS: BP 130/62
[2019-08-12] VITALS: BP 134/66
--- NOTE | 2019-08-12 02:18 | NUR ---
I have reviewed this patient and I concur with the Shift Assessment completed by the Licensed Practical Nurse today this shift.
[2019-08-12 04:00] VITALS: BP 132/66
[2019-08-12 05:44] LABS: ALBUMIN 2.5 g/dL (3.4-5.0); BILIRUBIN - TOTAL 0.37 mg/dL (0.2-1.3); CALCIUM 8.9 mg/dL (8.5-10.1); CARBON DIOXIDE 23.5 mmol/L (21.0-32.0); CREATININE - SERUM 1.3 mg/dL (0.6-1.3); PROTEIN - SERUM 6.5 g/dL (6.4-8.2)
[2019-08-12 05:45] LABS: ANION GAP 12.8 mmol/L (8-16); POTASSIUM - SERUM 4.3 mmol/L (3.5-5.1)
[2019-08-12 05:46] LABS: BASOPHILS 0.4 % (0-2); EOSINOPHILS 1.9 % (0-7); IMMATURE GRANULOCYTES 0.3 % (0-5); LYMPHOCYTES 21.8 % (15-50); MCH 31.7 pg (26.0-34.0); MCHC 31.5 g/dL (31.0-37.0); MCV 100.7 fL (80.0-100.0); MEAN PLATELET VOLUME 9.6 fL (7.4-10.4); MONOCYTES 8.8 % (2-11); NEUTROPHILS 66.8 % (40-80); PLATELET COUNT 304 10x3/uL (130-400); RDW 14.7 % (11.5-14.5); WBC 9.9 10x3/uL (4.8-10.8)
[2019-08-12 05:51] LABS: HEMATOCRIT 28.6 % (36.0-48.0); RBC 2.84 10x6/uL (4.00-5.40)
--- NOTE | 2019-08-12 07:14 | NUR ---
PT AWAKE AND ORIENTED, LYING IN BED RESTING. EXPRESS HOPES TO GO HOME EARLY. NO COMPLAINTS OR CONCERNS AT THIS TIME, ALL QUESTIONS ANSWERED TO THE BEST OF MY ABILITY. NO FAMILY PRESENT AT BEDSIDE. CL IN REACH, SRX2.
--- NOTE | 2019-08-12 08:34 | NUR ---
I CONCUR WITH EXPLOSIVE SPECIALIST ASSESMENT OF THE PATIENT.
[2019-08-12 09:25] VITALS: BP 113/57
--- NOTE | 2019-08-12 10:02 | NUR ---
UPON CHECKING ON PT SHE STATED SHE HAD A BAD HEADACHE AND REQUESTED TYLONOL, STATES SHE IS ALSO NAUSOUS. PROVIDED TYLENOL AND ZOFRAN TO ACCOMIDATE. PT STATES SHE WANTS TO LEAVE SOON SHE IS ABLE TO THIS A.M. D/T HER FAMILY HAVING A VERY LONG DRIVE TO COME PICK HER UP (FROM [facility]). PROVIDED RUBBER BAND TO PT FOR HAIR CARE. CL IN REACH, SRX2. NO FAMILY PRESENT AT BEDSIDE.
--- NOTE | 2019-08-12 11:31 | NUR ---
SPOKE WITH DR. PIMENTEL, HE STATED PT COULD GO HOME ON HIS END.
[2019-08-12 13:08] VITALS: BP 137/57
[2019-08-12 13:27] LABS: BASOPHILS 0.4 % (0-2); EOSINOPHILS 2.4 % (0-7); HEMATOCRIT 30.5 % (36.0-48.0); HEMOGLOBIN 9.4 g/dL (12-16); IMMATURE GRANULOCYTES 0.3 % (0-5); LYMPHOCYTES 21.2 % (15-50); MCH 31.5 pg (26.0-34.0); MCHC 30.8 g/dL (31.0-37.0); MCV 102.3 fL (80.0-100.0); MEAN PLATELET VOLUME 9.5 fL (7.4-10.4); MONOCYTES 8.1 % (2-11); NEUTROPHILS 67.6 % (40-80); PLATELET COUNT 320 10x3/uL (130-400); RBC 2.98 10x6/uL (4.00-5.40); RDW 14.9 % (11.5-14.5); WBC 11.8 10x3/uL (4.8-10.8)
[2019-08-12 13:40] LABS: % SATURATION 17 % (15-55); IRON 47 ug/dl (35-150); TOTAL IRON BIND CAPACITY 266 ug/dl (260-445); UNSAT IRON BIND CAPACITY 219 ug/dl (150-375)
--- NOTE | 2019-08-12 14:19 | NUR ---
EXPLAINED TO PT THAT SHE WOULD LIKELY BE STAYING TONIGHT D/T HER DROP IN HEMAGLOBIN. PROVIDED EDUCATION. PT IS UNDERSTANDING AND COMPLIENT WITH STAYING. CL IN REACH, SRX2. NO FAMILY PRESENT AT BEDSIDE.
[2019-08-12 16:00] VITALS: BP 143/64
--- NOTE | 2019-08-12 17:11 | NUR ---
PT HAS BEEN AWAKE AND ORIENTED, STATES HEADACHE AND NAUSEA IS MUCH BETTER THAN EARLIER TODAY. NO COMPALINTS/CONCERNS, ALL QUESTIONS ANSWERED TO THE BEST OF MY ABILITY. CL IN REACH, SRX2, NO FAMILY AT BEDSIDE.
--- NOTE | 2019-08-12 18:26 | NUR ---
PT AWAKE AND ORIENTED, UP TO THE RESTROOM AND NOW RESTING COMFORTABLY. NO COMPLAINTS OR CONCERNS AT THIS TIME. CL IN REACH, SRX2, NO FAMILY PRESENT AT BEDSIDE
--- NOTE | 2019-08-12 19:20 | NUR ---
PT RESTING IN BED ALERT AND ORIENTED X4. PT COMPLAINS OF PAIN IN BACK. PRN PAIN MED GIVEN. NO S/S OF DISTRESS AT THIS TIME. BED LOW CALL LIGHT WITHIN REACH. WILL CONTINUE TO MONITOR.
[2019-08-13] VITALS: BP 124/58
--- NOTE | 2019-08-13 02:43 | NUR ---
I have reviewed this patient and I concur with the Shift Assessment completed by the Licensed Practical Nurse today this shift.
[2019-08-13 04:00] VITALS: BP 132/60
[2019-08-13 05:36] LABS: BASOPHILS 0.4 % (0-2); EOSINOPHILS 3.5 % (0-7); HEMATOCRIT 25.9 % (36.0-48.0); HEMOGLOBIN 8.1 g/dL (12-16); IMMATURE GRANULOCYTES 0.2 % (0-5); MCHC 31.3 g/dL (31.0-37.0); MEAN PLATELET VOLUME 9.4 fL (7.4-10.4); MONOCYTES 9.1 % (2-11); NEUTROPHILS 57.8 % (40-80); PLATELET COUNT 286 10x3/uL (130-400); RBC 2.61 10x6/uL (4.00-5.40); RDW 14.6 % (11.5-14.5); WBC 9.5 10x3/uL (4.8-10.8)
[2019-08-13 05:57] LABS: MCV 99.2 fL (80.0-100.0)
[2019-08-13 06:02] LABS: ALBUMIN 2.5 g/dL (3.4-5.0); ANION GAP 9.7 mmol/L (8-16); BILIRUBIN - TOTAL 0.32 mg/dL (0.2-1.3); CALCIUM 9.2 mg/dL (8.5-10.1); CARBON DIOXIDE 26.5 mmol/L (21.0-32.0); CREATININE - SERUM 1.1 mg/dL (0.6-1.3); POTASSIUM - SERUM 4.2 mmol/L (3.5-5.1); PROTEIN - SERUM 6.6 g/dL (6.4-8.2)
--- NOTE | 2019-08-13 07:22 | NUR ---
REPORT RECEIVED. WILL CONTINUE WITH POC. PT CURRENTLY LYING SUPINE. CALL LIGHT W/I REACH. PT IS AAO AND UP AD JUAN. RR EVEN AND UNLABORED 3L 02. R AND L FOREARM PIV'S ARE SALINE LOCKED. PT DENIES ANY NEEDS AT THIS TIME. NO S/S OF DISTRESS NOTED. WILL CTM.
[2019-08-13 08:50] VITALS: BP 123/64
--- NOTE | 2019-08-13 11:57 | NUR ---
UPON ASSESSMENT, PT REPORTED MODERATE AMOUNTS OF TENDERNESS TO LUQ AND LLQ OF THE ABDOMEN. PALPATED LEFT FEMORAL SITE WHICH WAS C/D/I WITH NO S/S OF HEMATOMA PRESENT. SITE WAS NOT FIRM OR TENDER. NOTIFIED RESIDENT SERVICE COORDINATOR TEAM WHO ASSESSED THE PATIENT AND WAS NOTIFIED WHICH STATED HE WOULD COME ASSESS THE SITE. WILL CTM.
[2019-08-13 13:42] VITALS: BP 152/68
--- NOTE | 2019-08-13 15:28 | OP ---
PATIENT NAME: CAMELIA RAUSCH MEDICAL RECORD: [id number] :41 LOCATION:D.M2 D.2124 ADMISSION DATE:08/12/19 SURGEON: BRANDAN PIMENTEL MD DATE OF OPERATION: 08/11/2019 PROCEDURES: 1. PTCA stent left circumflex. 2. Left heart catheterization. 3. Selective coronary angiography. 4. Left ventriculogram. 5. Vein graft angiography. 6. DONOVAN angiography. INDICATION: Non-Q-wave myocardial infarction. PROCEDURE IN DETAIL: Consent was obtained. Detailed description of risks, benefits as well as alternative therapies, the patient elected to proceed with angiogram and angioplasty. The left femoral area was prepped and draped in normal sterile fashion. Left femoral artery was cannulated via modified Seldinger technique with placement of 6-Slovenian sheath. All catheters exchanged through this sheath. FINDINGS: Left ventriculogram was performed in standard 30-degree GUNTER view, reveals good cardiac wall motion, ejection fraction estimated 60%. SELECTIVE CORONARY ANGIOGRAPHY: 1. Left main is with no significant angiographic disease. 2. Left anterior descending is totally occluded mid vessel. 3. DONOVAN to the LAD is widely patent. Distal LAD is widely patent. 4. The left circumflex has an 80% to 90% stenosis in the proximal vessel. Both obtuse marginals were totally occluded. There is a vein graft to his obtuse marginal. The vein grafts are patent. Distal obtuse marginals are patent. There is 90% stenosis; however, does affect a terminal obtuse marginal that is nongrafted. 5. The right coronary is totally occluded. 6. Vein graft to the right coronary is widely patent. Distal right coronary is widely patent. PTCA stent of the [place]andreau proximal circumflex: The stent used was a 3.0 x 12mm [place]. Result was 0% residual stenosis. OVERALL IMPRESSION: Successful percutaneous transluminal coronary angioplasty stent of the [place]andreau left circumflex going from 90% initial stenosis to 0% residual. TRANSINT:[id number] Voice Confirmation ID: [id number] DOCUMENT ID: [id number] OPERATIVE REPORT [id number] CAMELIA RAUSCH BRANDAN PIMENTEL MD at 1528 CC: [id number] DICTATION DATE: 08/11/19 1325 AMMUNITION SPECIALIST: 08/11/19 1814 ADM IN [facility] [address] [place] [address]
[2019-08-13 18:26] VITALS: BP 166/85
--- NOTE | 2019-08-13 19:15 | NUR ---
PT LAYING IN BED ALERT AND ORIENTED X4. RR EVEN AND UNLABORED. PT STATES SHE IS FEELING TIRED. NO S/S OF DISTRESS AT THIS TIME. WAITING FOR PT TO PRODUCE STOOL SAMPLE. EVERYTHING IN ROOM AND SET UP. BED LOW CALL LIGHT WITHIN REACH. WILLCONTINUE TO MONITOR.
[2019-08-13 20:00] VITALS: BP 146/76
[2019-08-14] VITALS: BP 149/60
--- NOTE | 2019-08-14 03:05 | NUR ---
I have reviewed this patient and I concur with the Shift Assessment completed by the Licensed Practical Nurse today this shift.
[2019-08-14 04:30] VITALS: BP 134/62
[2019-08-14 05:12] LABS: BASOPHILS 0.5 % (0-2); EOSINOPHILS 3.4 % (0-7); HEMATOCRIT 24.5 % (36.0-48.0); HEMOGLOBIN 7.9 g/dL (12-16); IMMATURE GRANULOCYTES 0.3 % (0-5); LYMPHOCYTES 28.7 % (15-50); MCH 31.7 pg (26.0-34.0); MCHC 32.2 g/dL (31.0-37.0); MCV 98.4 fL (80.0-100.0); MEAN PLATELET VOLUME 8.7 fL (7.4-10.4); MONOCYTES 9.6 % (2-11); NEUTROPHILS 57.5 % (40-80); PLATELET COUNT 280 10x3/uL (130-400); RBC 2.49 10x6/uL (4.00-5.40); RDW 14.7 % (11.5-14.5); WBC 10.4 10x3/uL (4.8-10.8)
[2019-08-14 05:21] LABS: ALBUMIN 2.6 g/dL (3.4-5.0); ANION GAP 11.3 mmol/L (8-16); BILIRUBIN - TOTAL 0.45 mg/dL (0.2-1.3); CALCIUM 9.3 mg/dL (8.5-10.1); CARBON DIOXIDE 25.8 mmol/L (21.0-32.0); CREATININE - SERUM 1.1 mg/dL (0.6-1.3); POTASSIUM - SERUM 4.1 mmol/L (3.5-5.1); PROTEIN - SERUM 6.6 g/dL (6.4-8.2)
--- NOTE | 2019-08-14 08:09 | NUR ---
ALERT AND ORIENTED. SL TO RIGHT FA AND LEFT FA SL, PATENT. TELEMERTY SHOWS SR 78. RLEFT GROIN CATH SITE WITH DRSG DRY AND INTACT. BRUSING NOTED TO CATH SITE. UP AB JUAN. PT IS DEAF. WILL MONITOR
[2019-08-14 08:36] VITALS: BP 101/41
--- NOTE | 2019-08-14 10:39 | NUR ---
I have reviewed this patient and I concur with the Shift Assessment completed by the Licensed Practical Nurse today this shift.
[2019-08-14 12:30] VITALS: BP 132/70
--- NOTE | 2019-08-14 14:27 | MORECARE ---
CASE MANAGEMENT DISCHARGE SUMMARY PATIENT: CAMELIA RAUSCH UNIT: [id number] ADM DATE: 08/12/19 AGE: 74 : 43 SEX: F ROOM/BED: D.9794 AUTHOR: CHRIS,DOC PHYSICIAN: REFERRING PHYSICIAN: SINGH ODONNELL MD DATE OF SERVICE: 08/14/19 Discharge Plan Patient Name: CAMELIA RAUSCH Facility: [facility]:[place] : 1945 Planned Disposition: Home Anticipated Discharge Date: Discharge Date: Expected LOS: Initial Reviewer: [email or web address] Initial Review Date: 08/14/2019 Generated: 08/14/19 3:26 pm Comments DCP- Discharge Planning Updated by [email or web address]: Crystal Shah on 08/14/19 1:[address] Patient Name: CAMELIA RAUSCH Admission Status: ER Accout number: [id number] Admission Date: 08-12-2019 : 1945 Admission Diagnosis: Attending: DEV Current LOS: 2 Anticipated DC Date: Planned Disposition: Home Primary Insurance: MEDICARE A & B Discharge Planning Comments: CM met with patient at bedside after explaining CM role and obtaining verbal consent. CM discussed availability / needs of home health, REHAB and medical equipment. DENIES ANY NEEDS AND STATES HOPES TO DC TO HOME TODAY. CM TO FOLLOW AND ASSIST NEEDED. Licensed Architect: Crystal Shah DCPIA - Discharge Planning Initial Assessment Updated by [id number]: Crystal Shah on 08/14/19 2:23 pm * Is the patient Alert and Oriented? Yes * PCP SADAF * Pharmacy [facility] * Preadmission Environment Home Alone * ADLs Independent * Other Equipment NONE * Please name any agencies selected above. NONE * Additional services required to return to the preadmission environment? No * Can the patient safely return to the preadmission environment? Yes * Has this patient been hospitalized within the prior 30 days at any hospital? No Coverage Notice Reviewer: [id number] Shelby Collado Notice Issued Date-Time: 08/11/2019 15:30 Notice Type: Medicare Outpatient Observation Notice Notice Delivered To: Patient Relationship to Patient: Self Stave Jointer Name: Delivery Method: HAND - Hand Delivered Veronica Days: Prior Verbal Notification: Recipient Understood Notice: Yes Recipient Signature: Yes Med Rec Note Co-signed by Attending: Coverage Notice Comment: Patient Name: CAMELIA RAUSCH Page [phone] at 1427 All edits/amendments must be made on the electronic document DICTATION DATE: 08/14/191425 DEMAND MANAGER: SHONDA 08/14/191425 RPT#: [id number] DC DATE: STATUS: ADM IN [facility] [address] [place] [address] END OF REPORT
[2019-08-14 16:07] VITALS: BP 169/72
[2019-08-14 20:03] VITALS: BP 161/69
--- NOTE | 2019-08-14 20:18 | NUR ---
INITIAL ROUNDS COMPLETED AT 1910 HRS. PT HAS C/O L GROIN/SIDE PAIN. TYLENOL 650MG PO GIVEN. ASESSMENT COMPLETED AT 1950 HRS. SR PER CM HR 81. ALERT AND ORIENTED TO PERSON, PLACE AND TIME. BAKER. LUNGS CTA. ABD SOFT WITH ACTIVE BS NOTED. L GROIN TENDER AND BRUISED. BAKER. PALPABLE PERIPHERAL PULSES. IV TO RFA AND LFA SL. SR UP X2,CALL LIGHT WITHIN REACH.
--- NOTE | 2019-08-14 21:43 | NUR ---
PT GAVE SELF HIBICLENS BATH. NO DISTRESS NOTED. PT CURRENTLY TALKING ON PHNE. CALL LIGHT WITHIN REACH.
--- NOTE | 2019-08-15 00:17 | NUR ---
PT RESTING WITH EYES CLOSED. RESP EVEN AND REGULAR. SR UP X2, CALL LIGHT WITHIN REACH.
--- NOTE | 2019-08-15 00:25 | NUR ---
PT INCONTINENT OF URINE. INCONTINENT CARE DONE.
[2019-08-15 00:30] VITALS: BP 143/62
--- NOTE | 2019-08-15 02:01 | NUR ---
PT RESTING WITH EYES CLOSED. RESP EVEN AND REGULAR. SR UP X2, CALL LIGHT WITHIN REACH.
--- NOTE | 2019-08-15 04:10 | NUR ---
PT RESTING WITH EYES CLOSED. RESP EVEN AND REGULAR. SR UP X2, CALL LIGHT WITHIN REACH.
[2019-08-15 04:46] VITALS: BP 161/74
[2019-08-15 05:54] LABS: BASOPHILS 0.5 % (0-2); EOSINOPHILS 4.3 % (0-7); HEMATOCRIT 25.5 % (36.0-48.0); HEMOGLOBIN 8.1 g/dL (12-16); IMMATURE GRANULOCYTES 0.3 % (0-5); LYMPHOCYTES 22.6 % (15-50); MCH 31.4 pg (26.0-34.0); MCHC 31.8 g/dL (31.0-37.0); MCV 98.8 fL (80.0-100.0); MEAN PLATELET VOLUME 9.2 fL (7.4-10.4); MONOCYTES 8.8 % (2-11); NEUTROPHILS 63.5 % (40-80); PLATELET COUNT 337 10x3/uL (130-400); RBC 2.58 10x6/uL (4.00-5.40); WBC 9.9 10x3/uL (4.8-10.8)
[2019-08-15 06:16] LABS: ALBUMIN 2.7 g/dL (3.4-5.0); ANION GAP 15.4 mmol/L (8-16); BILIRUBIN - TOTAL 0.67 mg/dL (0.2-1.3); CALCIUM 9.7 mg/dL (8.5-10.1); CARBON DIOXIDE 22.4 mmol/L (21.0-32.0); CREATININE - SERUM 1.2 mg/dL (0.6-1.3); MAGNESIUM - SERUM 2.1 mg/dL (1.8-2.4); POTASSIUM - SERUM 3.8 mmol/L (3.5-5.1); PROTEIN - SERUM 7.3 g/dL (6.4-8.2)
--- NOTE | 2019-08-15 06:49 | NUR ---
VSS THROUGHOUT NIGHT. SR PER CM. RESTED WELL DURING SHIFT. NEEDS MET; WILL CONTINUE TO MONITOR.
--- NOTE | 2019-08-15 07:42 | NUR ---
ALERT AND ORIENTED. TELEMERTY SHOWS SR 83. SL TO LEFT AND RIGHT ARMS.UP AB JUAN. SR UP WITH CALL LIGHT IN REACH
[2019-08-15 08:00] VITALS: BP 160/72
[2019-08-15 12:00] VITALS: BP 145/70
--- NOTE | 2019-08-15 15:33 | NUR ---
UP TO BATHROOM. GAIT STEADY. DENIES ANY NEEDS. WILL MONITOR
[2019-08-15 16:00] VITALS: BP 143/71
--- NOTE | 2019-08-15 20:05 | NUR ---
INITIAL ROUNDS COMPLETED AT 1910 HRS. PT DENEID ANY DISCOMFORT. ASSESSMENT COMPLETED AT 1945 HRS. ALERT AND ORIENTED TOPERSON, PLACE AND TIME. BAKER. LUNGS ESSENTIALLY CTA. SR PER CM HR 93. ABD SOFT EITH ACTIVE BS NOTED. IV TO RFA AND LFA SL. L GROIN TENDER WITH BRUISES NOTED. SR UP X2, CALL LIGHT WITHIN REACH.
[2019-08-15 20:30] VITALS: BP 158/81
--- NOTE | 2019-08-15 21:38 | NUR ---
TYLENOL 650MG PO GIVEN FOR C/O BATISTA. WILL CONTINUE TO MONITOR. SR UP X2, CALL LIGHT WITHIN REACH.
[2019-08-16 00:13] VITALS: BP 149/72
--- NOTE | 2019-08-16 00:48 | NUR ---
PT RESTING WITH EYES CLOSED. RESP EVEN AND REGULAR. SR UP X2, CALL LIGHT WITHIN REACH.
--- NOTE | 2019-08-16 02:27 | NUR ---
PT RESTING WITH EYES CLOSED. RESP EVEN AND REGULAR. SR UP X2, CALL LIGHT WITHIN REACH.
--- NOTE | 2019-08-16 04:18 | NUR ---
PT RESTING WITH EYES CLOSED. RESP EVEN AND REGULAR. SR UP X2, CALL LIGHT WITHIN REACH.
[2019-08-16 04:26] VITALS: BP 158/65
--- NOTE | 2019-08-16 06:07 | NUR ---
VSS THROUGHOUT NIGHT. SR PER CM. PT STATED TYNEOL ALLEVIATED BATISTA. NEEDS MET; WILL CONTINUE TO MONITOR.
[2019-08-16 06:30] LABS: ALBUMIN 2.7 g/dL (3.4-5.0); ANION GAP 12.5 mmol/L (8-16); BILIRUBIN - TOTAL 0.87 mg/dL (0.2-1.3); CALCIUM 9.7 mg/dL (8.5-10.1); CARBON DIOXIDE 24.5 mmol/L (21.0-32.0); CREATININE - SERUM 1.3 mg/dL (0.6-1.3); MAGNESIUM - SERUM 2.1 mg/dL (1.8-2.4); PROTEIN - SERUM 7.7 g/dL (6.4-8.2)
[2019-08-16 06:53] LABS: BASOPHILS 0.7 % (0-2); HEMATOCRIT 26.6 % (36.0-48.0); HEMOGLOBIN 8.5 g/dL (12-16); IMMATURE GRANULOCYTES 0.3 % (0-5); LYMPHOCYTES 20.5 % (15-50); MCH 31.8 pg (26.0-34.0); MCV 99.6 fL (80.0-100.0); MEAN PLATELET VOLUME 9.1 fL (7.4-10.4); MONOCYTES 10.3 % (2-11); NEUTROPHILS 63.2 % (40-80); PLATELET COUNT 387 10x3/uL (130-400); RBC 2.67 10x6/uL (4.00-5.40); RDW 15.3 % (11.5-14.5); WBC 9.9 10x3/uL (4.8-10.8)
--- NOTE | 2019-08-16 07:35 | NUR ---
PT RESTING, EYES CLOSED. RR EVEN AND UNLABORED. DENIES NEEDS OR PAIN AT THIS TIME. IV NOTED TO RIGHT AND LEFT FOREARM, SL. CALL LIGHT WITHIN REACH. BED IN LOWEST POSITION. WILL CONTINUE TO MONITOR.
--- NOTE | 2019-08-16 09:52 | NUR ---
I have reviewed this patient and I concur with the Shift Assessment completed by the Licensed Practical Nurse today this shift.
--- NOTE | 2019-08-16 09:57 | NUR ---
PT AMBULATING IN HALLWAY WITH STEADY GAIT.
[2019-08-16 10:42] VITALS: BP 150/75
--- NOTE | 2019-08-16 11:43 | NUR ---
Rehab Note- Acute Inpatient REhab prescreen order received. The patient is noted to independent with her ADLs & mobility per OT & PT Evals. The patient is noted too functional for inpatient acute rehab at this time. Spoke with PEDRO Martinez. Thank you for this referral! Carmen Tellez RN Clinical Liaison, [facility] Rehab
[2019-08-16] MEDS ORDERED: PLAVIX75 MG PO (12:39)
[2019-08-16 13:34] VITALS: BP 163/64
--- NOTE | 2019-08-16 13:59 | MORECARE ---
CASE MANAGEMENT DISCHARGE SUMMARY PATIENT: CAMELIA RAUSCH UNIT: [id number] ADM DATE: 08/12/19 AGE: 74 : 43 SEX: F ROOM/BED: D.4144 AUTHOR: CHRIS,DOC PHYSICIAN: REFERRING PHYSICIAN: SINGH ODONNELL MD DATE OF SERVICE: 08/16/19 Discharge Plan Patient Name: CAMELIA RASUCH Facility: [facility]:[place] : 1945 Planned Disposition: Home Anticipated Discharge Date: 08/16/19 Discharge Date: Expected LOS: 4 Initial Reviewer: [id number] Initial Review Date: 08/14/2019 Generated: 08/16/19 2:58 pm DCP- Discharge Planning Updated by [id number]: Crystal Shah on 08/14/19 1:[address] Patient Name: CAMELIA RAUSCH Admission Status: ER Accout number: [id number] Admission Date: 08-12-2019 : 1945 Admission Diagnosis: Attending: DEV Current LOS: 2 Anticipated DC Date: Planned Disposition: Home Primary Insurance: MEDICARE A & B Discharge Planning Comments: CM met with patient at bedside after explaining CM role and obtaining verbal consent. CM discussed availability / needs of home health, REHAB and medical equipment. DENIES ANY NEEDS AND STATES HOPES TO DC TO HOME TODAY. CM TO FOLLOW AND ASSIST NEEDED. Back Up Worker: Crystal Shah DCPIA - Discharge Planning Initial Assessment Updated by [id number]: Crystal Shah on 08/14/19 2:23 pm * Is the patient Alert and Oriented? Yes * PCP SADAF * Pharmacy [facility] * Preadmission Environment Home Alone * ADLs Independent * Other Equipment NONE * Please name any agencies selected above. NONE * Additional services required to return to the preadmission environment? No * Can the patient safely return to the preadmission environment? Yes * Has this patient been hospitalized within the prior 30 days at any hospital? No Coverage Notice Reviewer: [id number] - [facility] Notice Issued Date-Time: 08/11/2019 15:30 Notice Type: Medicare Outpatient Observation Notice Notice Delivered To: Patient Relationship to Patient: Self Application Security Engineer Name: Delivery Method: HAND - Hand Delivered Veronica Days: Prior Verbal Notification: Recipient Understood Notice: Yes Recipient Signature: Yes Med Rec Note Co-signed by Attending: Coverage Notice Comment: Reviewer: [id number] - Cyril Grajeda Notice Issued Date-Time: 08/16/2019 13:25 Notice Type: IM Discharge Notice Notice Delivered To: Patient Relationship to Patient: Application Security Engineer Name: Delivery Method: HAND - Hand Delivered Veronica Days: Prior Verbal Notification: Recipient Understood Notice: Yes Recipient Signature: Yes Med Rec Note Co-signed by Attending: Coverage Notice Comment: Last DP export: 08/14/19 1:27 Patient Name: CAMELIA RAUSCH Page [id number] at 1359 All edits/amendments must be made on the electronic document DICTATION DATE: 08/16/19 1358 CAREER MANAGER: SHONDA 08/16/19 1358 RPT#: [id number] DC DATE: STATUS: ADM IN [facility] [address] [place] [address] END OF REPORT
--- NOTE | 2019-08-16 14:08 | MORECARE ---
CASE MANAGEMENT DISCHARGE SUMMARY PATIENT: CAMELIA RAUSCH UNIT: [id number] ADM DATE: 08/12/19 AGE: 74 : 43 SEX: F ROOM/BED: D.6521 AUTHOR: CHRIS,DOC PHYSICIAN: REFERRING PHYSICIAN: SINGH ODONNELL MD DATE OF SERVICE: 08/16/19 Discharge Plan Patient Name: CAMELIA RAUSCH Facility: [facility]:[place] : 1945 Planned Disposition: Home Anticipated Discharge Date: 08/16/19 Discharge Date: Expected LOS: 4 Initial Reviewer: [email or web address] Initial Review Date: 08/14/2019 Generated: 08/16/19 3:07 pm Comments DCP- Discharge Planning Updated by [email or web address]: Cyril Grajeda on 08/16/19 1:[address] Patient Name: CAMELIA RAUSCH Encounter No: [id number] : 1945 Primary Insurance: MEDICARE A & B Anticipated DC Date: 08-16-2019 Planned Disposition: Home DCP follow-up note: CM RECEIVED ORDER FOR INPATIENT REHAB PRESCREENING, SPOKE TO CHRISTOPHER OF INPATIENT REHAB WHO DECLINED PT, THERAPY, BOTH PHYSICAL AND OCCUPATIONAL, HAVE SIGNED OFF. CM MET WITH PT IN ROOM TO DISCUSS DISCHARGE NEEDS AND PLANNING. CM DISCUSSED AVAILABILITY OF HOME HEALTH, REHAB SERVICES AND MEDICAL EQUIPMENT. PT DENIES REHAB NEEDS. PT DOES NOT WANT HOME HEALTH AND REPORTS ABILITY TO CARE FOR HERSELF AND EXERCISE AT HOME. PT STATES ALL SHE NEEDS TO DO IS WALK HERSELF. PT REPORTS FAMILY TO TRANSPORT HOME AT DISCHARGE. PT STATES HER SISTER IS IN SCHOOL AND WILL NOT PICK HER UP UNTIL SHE GETS OUT OF SCHOOL AT 4PM AND THEY ARE FROM [facility]. IMPORTANT MESSAGE FROM MEDICARE PROVIDED AND EXPLAINED. SOLUTION MAKE UP OPERATOR NURSE NOTIFIED. Cyril Grajeda CASE TOBIN DCP- Discharge Planning Updated by [email or web address]: Crystal Shah on 08/14/19 1:[address] Patient Name: CAMELIA RAUSCH Admission Status: ER Accout number: [id number] Admission Date: 08-12-2019 : 1945 Admission Diagnosis: Attending: DEV Current LOS: 2 Anticipated DC Date: Planned Disposition: Home Primary Insurance: MEDICARE A & B Discharge Planning Comments: CM met with patient at bedside after explaining CM role and obtaining verbal consent. CM discussed availability / needs of home health, REHAB and medical equipment. DENIES ANY NEEDS AND STATES HOPES TO DC TO HOME TODAY. CM TO FOLLOW AND ASSIST NEEDED. Corncob Pipes Assembler: Crystal Shah DCPIA - Discharge Planning Initial Assessment Updated by [id number]: Crystal Shah on 08/14/19 2:23 pm * Is the patient Alert and Oriented? Yes * PCP SADAF * Pharmacy [facility] * Preadmission Environment Home Alone * ADLs Independent * Other Equipment NONE * Please name any agencies selected above. NONE * Additional services required to return to the preadmission environment? No * Can the patient safely return to the preadmission environment? Yes * Has this patient been hospitalized within the prior 30 days at any hospital? No Coverage Notice Reviewer: [id number] Shelby Collado Notice Issued Date-Time: 08/11/2019 15:30 Notice Type: Medicare Outpatient Observation Notice Notice Delivered To: Patient Relationship to Patient: Self Buttermilk Drier Operator Name: Delivery Method: HAND - Hand Delivered Veronica Days: Prior Verbal Notification: Recipient Understood Notice: Yes Recipient Signature: Yes Med Rec Note Co-signed by Attending: Coverage Notice Comment: Reviewer: [id number] - Cyril Grajeda Notice Issued Date-Time: 08/16/2019 13:25 Notice Type: IM Discharge Notice Notice Delivered To: Patient Relationship to Patient: Buttermilk Drier Operator Name: Delivery Method: HAND - Hand Delivered Veronica Days: Prior Verbal Notification: Recipient Understood Notice: Yes Recipient Signature: Yes Med Rec Note Co-signed by Attending: Coverage Notice Comment: Last DP export: 08/16/19 12:58 p Patient Name: CAMELIA RAUSCH Page [id number] at 1408 All edits/amendments must be made on the electronic document DICTATION DATE: 08/16/191406 AIRPLANE INSPECTOR: SHONDA 08/16/191406 RPT#: [id number] DC DATE: STATUS: ADM IN [facility] [address] [place] [address] END OF REPORT
--- NOTE | 2019-08-16 15:28 | NUR ---
BOTH MYSELF AND THE PT HAS ATTEMPTED TO CALL PT'S SISTER SEVERAL TIMES TO COME PICK HER UP FOR D/C. NO ANSWER. CASE MANAGEMENT NOTIFIED
--- NOTE | 2019-08-16 17:03 | MORECARE ---
CASE MANAGEMENT DISCHARGE SUMMARY PATIENT: CAMELIA RAUSCH UNIT: [id number] ADM DATE: 08/12/19 AGE: 74 : 43 SEX: F ROOM/BED: D.2079 AUTHOR: CHRIS,DOC PHYSICIAN: REFERRING PHYSICIAN: SINGH ODONNELL MD DATE OF SERVICE: 08/16/19 Discharge Plan Patient Name: CAMELIA RAUSCH Facility: [facility]:[place] : 1945 Planned Disposition: Home Anticipated Discharge Date: 08/16/19 Discharge Date: Expected LOS: 4 Initial Reviewer: [id number] Initial Review Date: 08/14/2019 Generated: 08/16/19 6:03 pm Comments DCP- Discharge Planning Updated by [id number]: Cyril Ventura on 08/16/19 3:[address] Patient Name: CAMELIA RAUSCH Encounter No: [id number] : 1945 Primary Insurance: MEDICARE A & B Anticipated DC Date: 08-16-2019 Planned Disposition: Home DCP follow-up note: CM RECEIVED ORDER FOR INPATIENT REHAB PRESCREENING, SPOKE TO CHRISTOPHER OF INPATIENT REHAB WHO DECLINED PT, THERAPY, BOTH PHYSICAL AND OCCUPATIONAL, HAVE SIGNED OFF. CM MET WITH PT IN ROOM TO DISCUSS DISCHARGE NEEDS AND PLANNING. CM DISCUSSED AVAILABILITY OF HOME HEALTH, REHAB SERVICES AND MEDICAL EQUIPMENT. PT DENIES REHAB NEEDS. PT DOES NOT WANT HOME HEALTH AND REPORTS ABILITY TO CARE FOR HERSELF AND EXERCISE AT HOME. PT STATES ALL SHE NEEDS TO DO IS WALK HERSELF. PT REPORTS FAMILY TO TRANSPORT HOME AT DISCHARGE. PT STATES HER SISTER IS IN SCHOOL AND WILL NOT PICK HER UP UNTIL SHE GETS OUT OF SCHOOL AT 4PM AND THEY ARE FROM [facility]. IMPORTANT MESSAGE FROM MEDICARE PROVIDED AND EXPLAINED. ASSISTANT MANAGER RETAIL NURSE NOTIFIED. Cyril Ventura, CASE MANAGEMENT Appended by Cyril Ventura on 08/16/2019 16:56 SHELL PLATER: PATIENT AND BEDSIDE NURSE WAS NOT ABLE TO CONTACT FAMILY FOR TRANSPORT HOME. CM MET WITH PT AND SPENT A LARGE AMOUNT OF TIME, GREATER THAN ONE HOUR, ASSISTING PT WITH LOCATING FAMILY TO PICK HER UP FOR TRANSPORT HOME TODAY. CM WAS ABLE TO CONTACT PT'S SISTER ROSIBEL, WHO WILL ASE CERTIFIED TECHNICIAN PT AT OR AFTER 1830 HOURS THIS EVENING. BEDSIDE NURSE NOTIFIED. CYRIL VENTURA, CASE MANAGEMENT DCP- Discharge Planning Updated by [email or web address]: Crystal Shah on 08/14/19 1:[address] Patient Name: CAMELIA RAUSCH Admission Status: ER Accout number: [id number] Admission Date: 08-12-2019 : 1945 Admission Diagnosis: Attending: DEV Current LOS: 2 Anticipated DC Date: Planned Disposition: Home Primary Insurance: MEDICARE A & B Discharge Planning Comments: CM met with patient at bedside after explaining CM role and obtaining verbal consent. CM discussed availability / needs of home health, REHAB and medical equipment. DENIES ANY NEEDS AND STATES HOPES TO DC TO HOME TODAY. CM TO FOLLOW AND ASSIST NEEDED. Batch Trucker: Crystal Shah DCPIA - Discharge Planning Initial Assessment Updated by [email or web address]: Crystal Shah on 08/14/19 2:23 pm * Is the patient Alert and Oriented? Yes * PCP SADAF * Pharmacy [facility] * Preadmission Environment Home Alone * ADLs Independent * Other Equipment NONE * Please name any agencies selected above. NONE * Additional services required to return to the preadmission environment? No * Can the patient safely return to the preadmission environment? Yes * Has this patient been hospitalized within the prior 30 days at any hospital? No Coverage Notice Reviewer: [email or web address] - Zhanna Collado Notice Issued Date-Time: 08/11/2019 15:30 Notice Type: Medicare Outpatient Observation Notice Notice Delivered To: Patient Relationship to Patient: Self Atm Manager Name: Delivery Method: HAND - Hand Delivered Veronica Days: Prior Verbal Notification: Recipient Understood Notice: Yes Recipient Signature: Yes Med Rec Note Co-signed by Attending: Coverage Notice Comment: Reviewer: [id number] - Cyril Ventura Notice Issued Date-Time: 08/16/2019 13:25 Notice Type: IM Discharge Notice Notice Delivered To: Patient Relationship to Patient: Atm Manager Name: Delivery Method: HAND - Hand Delivered Veronica Days: Prior Verbal Notification: Recipient Understood Notice: Yes Recipient Signature: Yes Med Rec Note Co-signed by Attending: Coverage Notice Comment: Last DP export: 08/16/19 1:08 p Patient Name: CAMELIA RAUSCH Page [id number] at 1703 All edits/amendments must be made on the electronic document DICTATION DATE: 08/16/191702 SIEVE REPAIRER: SHONDA 08/16/191702 RPT#: [id number] DC DATE: STATUS: ADM IN [facility] [address] [place] [address] END OF REPORT
--- NOTE | 2019-08-16 18:04 | NUR ---
D/C INSTRUCTIONS REVIEWED. PT VERBALIZED UNDERSTANDING AND DENIES FURTHER NEEDS AT THIS TIME. BOTH IVS D/C WITH CATHETER TIP INTACT. PT STATES HER SISTER WILL BE HERE TO PICK HER UP AROUND 1830. MONITOR REMOVED AND RETURNED TO RISK CONTROL CONSULTANT.
--- NOTE | 2019-08-16 20:47 | NUR ---
OT NOTE: PT COMPLETED ADL MOB WITH MOD I/SUPV. PT COMPLETED TOILETING TASKS IWTH MOD I/SUPV. THANK YOU, MARY WERNRE
== END 2019-08-16 18:59 | disposition home or self-care (01) | DRG 247 ==
LOC: D.ER 04:01 → OBSVTIME 04:44 → D.M2 04:44
PROVIDERS: Emergency Medicine; Internal Medicine Cardiovascular Disease; Internal Medicine Interventional Cardiology; ADMIT Family Medicine; ATTEND Family Medicine
PROC: B2181ZZ Fluoroscopy of Left Internal Mammary Bypass Graft using Low Osmolar Contrast (ICD-10-PCS; 2019-08-11)
PROC: B2151ZZ Fluoroscopy of Left Heart using Low Osmolar Contrast (ICD-10-PCS; 2019-08-11)
PROC: B2111ZZ Fluoroscopy of Multiple Coronary Arteries using Low Osmolar Contrast (ICD-10-PCS; 2019-08-11)
PROC: 027034Z Dilation of Coronary Artery, One Artery with Drug-eluting Intraluminal Device, Percutaneous Approach (ICD-10-PCS; principal; 2019-08-11 12:15)
PROC: 4A023N7 Measurement of Cardiac Sampling and Pressure, Left Heart, Percutaneous Approach (ICD-10-PCS; 2019-08-11 12:15)
DX: I21.4 Non-ST elevation (NSTEMI) myocardial infarction (principal); F17.213 Nicotine dependence, cigarettes, with withdrawal; I10 Essential (primary) hypertension; I25.10 Atherosclerotic heart disease of native coronary artery without angina pectoris; E78.5 Hyperlipidemia, unspecified

== ENCOUNTER → 2019-09-20 09:44 | Outpatient (CLI) | payer MEDICARE ==
[2019-08-11 05:42] VITALS: BMI 23.8
[~2019-09-20 09:44] MED LIST changes: +PLAVIX75 MG PO
== END | disposition home or self-care (01) ==
LOC: D.CT 09:44
PROVIDERS: ATTEND Internal Medicine Cardiovascular Disease
DX: R10.32 Left lower quadrant pain (principal)